=== PATIENT | female | born 1950 | race Caucasian/White ===

== ENCOUNTER 2018-04-06 10:00 | Inpatient (IN) | payer MEDICARE, OTHER ==
[~2018-04-06] VITALS: Ht 160 cm; Wt 87.1 kg
[~2018-04-06 10:00] MED LIST: ALPR0.25 PO; ALPR0.5T PO; ASPI-482 PO; ATOR10TA PO; ATOR20TA PO; BYSTOLIC2.5 MG PO; BYSTOLIC5 MG PO; CALC-112 PO; FISH1CAP PO; FURO20TA3 PO; HYDR-2678 PO; LACT1CAP19 PO; OMEP20TA63 PO; POTA10TA12 PO; VIT1TABL34 PO
--- NOTE | 2018-04-06 10:20 | EKG ---
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
--- NOTE | 2018-04-06 10:30 | PHYS DOC ---
Past Medical History Past Medical History: Anxiety, GERD, Hypertension Additional Past Medical Histor: MACULAR DEGENERATION, ARTHRITIS, Past Surgical History: Cancer Surgery, Hysterectomy, Tonsillectomy Additional Past Surgical Histo: MITRAL VALVE REPLACEMENT, CARCINOMA, R. MINISCUS RX, PARATHYROID Alcohol Use: None Drug Use: Benzodiazepine Adult General Chief Complaint Chief Complaint: CHEST PAIN HPI HPI 67-year-old female presenting to the emergency department today after being seen by Dr. Velazquez in clinic. Her monitor was initiated and the patient was called and brought into the emergency department because of multiple PVCs, bigeminy and tachycardia. The patient's symptoms are primarily shortness of breath. She denies any chest pain. She has a history of high blood pressure and mitral valve replacement. She denies fevers chills headaches. Her shortness of breath has been present for more than a week intermittently worse when she walks. Review of systems is negative for chest pain abdominal pain nausea vomiting diaphoresis. All other review of systems is negative unless otherwise noted in history of present illness. ED course: 67-year-old female presenting with palpitations and shortness of breath found to have bigeminy and tachycardia on Holter monitor at home. Here the patient has bigeminy as well. On arrival the patient's heart rate is approximately 100 bpm. She is afebrile with mild hypertension. On examination she is well-appearing with clear lungs bilaterally. Blood work obtained along with chest x-ray. 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 Chest x-ray unremarkable. Blood work shows a negative troponin. CBC unremarkable. The remainder the blood work is unremarkable. Dr. Velazquez asked me to administer flecainide to the patient to admit the patient for treatment of bigeminy. The patient was then admitted for further treatment and care. Review of Systems Review of Systems SEE ABOVE. Current Medications Current Medications Current Medications Medications (Trade) Dose Ordered Sig/Oc Start Time Stop Time Status Last Admin Dose Admin Flecainide Acetate (Tambocor) 75 mg 1X ONCE 04/06/18 11:00 04/06/18 11:01 DC 04/06/18 11:09 75 MG Morphine Sulfate (Morphine Sulfate) 2 mg PRN Q2HR PRN 04/06/18 11:00 04/07/18 10:59 Sodium Chloride 1,000 ml @ 80 mls/hr [id number] 04/06/18 10:52 04/07/18 10:51 Allergies Allergies Allergies Coded Allergies Type Severity Reaction Last Updated Verified ketorolac Allergy Severe Swelling 02/07/16 Yes cephalexin Allergy Intermediate 02/07/16 Yes ciprofloxacin Allergy Intermediate 02/11/16 Yes clindamycin Allergy Intermediate 02/07/16 Yes sulfamethoxazole Allergy Intermediate 02/07/16 Yes trimethoprim Allergy Intermediate 02/07/16 Yes nitrofurantoin Allergy Unknown Rash 02/07/16 Yes Physical Exam Physical Exam SEE ABOVE Constitutional: Well developed, well nourished, no acute distress, non-toxic appearance. HENT: Normocephalic, atraumatic, bilateral external ears normal, oropharynx moist, no oral exudates, nose normal. [] Eyes: PERRLA, EOMI, conjunctiva normal, no discharge. Neck: Normal range of motion, no tenderness, supple, no stridor. [] Cardiovascular: mild tachy heart rate with irregular rhythm, no murmur Lungs & Thorax: Bilateral breath sounds clear to auscultation [] Abdomen: Bowel sounds normal, soft, no tenderness, no masses, no pulsatile masses. Skin: Warm, dry, no erythema, no rash. [] Back: No tenderness, no CVA tenderness. Extremities: No tenderness, no cyanosis, no clubbing, ROM intact, no edema. Neurologic: Alert and oriented X 3, normal motor function, normal sensory function, no focal deficits noted. [] Psychologic: Affect normal, judgement normal, mood normal. [] Current Patient Data Vital Signs Vital Signs Date Time Temp Pulse Resp B/P (MAP) Pulse Ox O2 Delivery O2 Flow Rate FiO2 04/06/18 11:30 98 152/68 (96) 99 Room Air 04/06/18 10:07 98.3 98.3 Lab Values Laboratory Tests Test 04/06/18 10:15 White Blood Count 6.3 x10^3/uL (4.0-11.0) Red Blood Count 4.89 x10^6/uL (3.50-5.40) Hemoglobin 14.4 g/dL (12.0-15.5) Hematocrit 42.6 % (36.0-47.0) Mean Corpuscular Volume 87 fL (79-100) Mean Corpuscular Hemoglobin 30 pg (25-35) Mean Corpuscular Hemoglobin Concent 34 g/dL (31-37) Red Cell Distribution Width 13.8 % (11.5-14.5) Platelet Count 142 x10^3/uL (140-400) Neutrophils (%) (Auto) 66 % (31-73) Lymphocytes (%) (Auto) 22 % (24-48) L Monocytes (%) (Auto) 10 % (0-9) H Eosinophils (%) (Auto) 2 % (0-3) Basophils (%) (Auto) 0 % (0-3) Neutrophils # (Auto) 4.2 x10^3uL (1.8-7.7) Lymphocytes # (Auto) 1.4 x10^3/uL (1.0-4.8) Monocytes # (Auto) 0.6 x10^3/uL (0.0-1.1) Eosinophils # (Auto) 0.1 x10^3/uL (0.0-0.7) Basophils # (Auto) 0.0 x10^3/uL (0.0-0.2) Prothrombin Time 12.9 SEC (11.7-14.0) Prothrombin Time INR 1.0 (0.8-1.1) PTT 32 SEC (24-38) Sodium Level 143 mmol/L (136-145) Potassium Level 4.6 mmol/L (3.5-5.1) Chloride Level 104 mmol/L (98-107) Carbon Dioxide Level 30 mmol/L (21-32) Anion Gap 9 (6-14) Blood Urea Nitrogen 12 mg/dL (7-20) Creatinine 0.8 mg/dL (0.6-1.0) Estimated GFR (Cockcroft-Gault) 71.1 Glucose Level 109 mg/dL (70-99) H Calcium Level 10.8 mg/dL (8.5-10.1) H Magnesium Level 2.3 mg/dL (1.8-2.4) Total Bilirubin 0.8 mg/dL (0.2-1.0) Direct Bilirubin 0.2 mg/dL (0.0-0.2) Aspartate Amino Transferase (AST) 21 U/L (15-37) Alanine Aminotransferase (ALT) 29 U/L (14-59) Alkaline Phosphatase 98 U/L (46-116) Troponin I Quantitative < 0.017 ng/mL (0.000-0.055) LT-Whi-T-Type Natriuretic Peptide 549 pg/mL (0-124) H Total Protein 7.4 g/dL (6.4-8.2) Albumin 4.1 g/dL (3.4-5.0) Lipase 114 U/L (73-393) Laboratory Tests 04/06/18 10:15 Laboratory Tests 04/06/18 10:15 EKG EKG [] Radiology/Procedures Radiology/Procedures [] Course & Med Decision Making Course & Med Decision Making Pertinent Labs and Imaging studies reviewed. (See chart for details) [] Dragon Disclaimer Dragon Disclaimer This electronic medical record was generated, in whole or in part, using a voice recognition dictation system. Departure Departure Impression: Primary Impression: SOB (shortness of breath) Additional Impression: Bigeminy Disposition: 09 ADMITTED INPATIENT Admitting Physician: Dimas Velazquez Condition: STABLE Referrals: JANET YI MD (PCP) Problem Qualifiers VANCE GONSALES MD Apr 06, 2018 10:29
[2018-04-06 10:33] LABS: BASO % 0 % (0-3); EOS # 0.1 x10^3/uL (0.0-0.7); EOS % 2 % (0-3); HEMATOCRIT 42.6 % (36.0-47.0); HEMOGLOBIN 14.4 g/dL (12.0-15.5); LYMPH # 1.4 x10^3/uL (1.0-4.8); LYMPH % 22 % (24-48); MEAN CORPUSCULAR HEMOGLOBIN 30 pg (25-35); MEAN CORPUSCULAR HGB CONC 34 g/dL (31-37); MEAN CORPUSCULAR VOLUME 87 fL (79-100); MONO # 0.6 x10^3/uL (0.0-1.1); MONO % 10 % (0-9); NEUT # 4.2 x10^3uL (1.8-7.7); NEUT % 66 % (31-73); PLATELET COUNT 142 x10^3/uL (140-400); RED BLOOD COUNT 4.89 x10^6/uL (3.50-5.40); RED CELL DISTRIBUTION WIDTH 13.8 % (11.5-14.5); WHITE BLOOD COUNT 6.3 x10^3/uL (4.0-11.0)
[2018-04-06 10:45] LABS: PROTHROMBIN TIME PATIENT 12.9 SEC (11.7-14.0)
[2018-04-06 10:46] LABS: CALCIUM 10.8 mg/dL (8.5-10.1); CREATININE 0.8 mg/dL (0.6-1.0); GFR 71.1; POTASSIUM 4.6 mmol/L (3.5-5.1)
[2018-04-06 10:52] LABS: ALBUMIN 4.1 g/dL (3.4-5.0); DIRECT BILIRUBIN 0.2 mg/dL (0.0-0.2); TOTAL BILIRUBIN 0.8 mg/dL (0.2-1.0); TOTAL PROTEIN 7.4 g/dL (6.4-8.2)
[2018-04-06] MEDS ORDERED: IV NORMAL SALINE 1000ML BAG 1,000 ML IV SCH (10:52)
--- NOTE | 2018-04-06 10:53 | RAD ---
CHEST AP ONLY dated 04/06/2018 10:39 AM. Comparison: 11/08/2015 Clinical Indication: CHEST PAIN AND SHORTNESS OF BREATH. Findings: Single upright portable exam performed. Heart and mediastinal contours are stable. Patient is status post median sternotomy. Lungs are clear without focal consolidation. Vascular interstitium within normal limits. No pleural effusion or pneumothorax. Impression: No acute radiographic abnormality. Stable findings compared to 11/08/2015. Electronically signed by: Rosas Avelar MD (04/06/2018 10:49 AM) [id number]
[2018-04-06] MEDS ORDERED: MORPHINE SULFATE 2 MG/ML VIAL. IV PRN (11:00)
[2018-04-06] MEDS ORDERED: FLECAINIDE ACETATE 50 MG TABLET. PO ONE (11:00)
[2018-04-06 14:51] VITALS: BP 128/64
[2018-04-06] MEDS ORDERED: CALC-112 PO (15:16)
[2018-04-06] MEDS ORDERED: POTA20TA82 PO (15:16)
--- NOTE | 2018-04-06 15:33 | PDOC1 ---
History and Physical Date of Admission Date of Admission DATE: 04/06/18 TIME: 15:08 Identification/Chief Complaint Chief Complaint Irregular heart beat Source Source: Patient History of Present Illness History of Present Illness Patient is a pleasant 67 year old white female that presents with chief complaint of heart palpitations. She has also been experiencing HER, headaches, and fatigue. Symptoms began 5 months ago, occur intermittently and have progressively worsened. Patient denies chest pain during these episodes. Patient wore a holter monitor 2 days ago, which showed frequent PVCs. She was admitted to [facility] for monitoring while Flecainide therapy is initiated. Past Medical History Past Medical History macular degeneration Cardiovascular: HTN GI: GERD Psych: Anxiety Musculoskeletal: Osteoarthritis Past Surgical History Past Surgical History: Tonsillectomy, Hysterectomy, Other (mitral valve replacement, parathyroid surgery) Current Problem List Problem List Problems Medical Problems: (1) Bigeminy Status: Acute (2) SOB (shortness of breath) Status: Acute Current Medications Current Medications Current Medications Morphine Sulfate (Morphine Sulfate) 2 mg PRN Q2HR PRN IV PAIN; Start 04/06/18 at 11:00; Stop 04/07/18 at 10:59 Sodium Chloride 1,000 ml @ 80 mls/hr [id number] IV ; Start 04/06/18 at 10:52; Stop 04/07/18 at 10:51 Flecainide Acetate (Tambocor) 75 mg 1X ONCE PO Last administered on at 11:09; Start 04/06/18 at 11:00; Stop 04/06/18 at 11:01; Status DC Active Scripts Active Reported Lortab 5-325 mg Tablet (Hydrocodone/Acetaminophen) 1 Each Tablet 1 Tab PO PRN Q6HRS PRN Preservision Areds Tablet (Vit A/Vit C/Vit E/Zinc/Copper) 1 Each Tablet 1 Each PO DAILY Fish Oil 1,200 Mg Fish Oil (Fish Oil/Dha/Epa) 1 Each Capsule 1 Each PO DAILY Citracal + D Er Tablet (Calcium Carb & Cit/Vitamin D3) 1 Each Tablet.er 1 Each PO DAILY Aspir 81 (Aspirin) 81 Mg Tablet. 1 Tab PO DAILY Culturelle (Lactobacillus Rhamnosus Gg) 1 Each Cap.sprink 1 Each PO DAILY Potassium Chloride 10 Meq Tablet.er 20 Meq PO DAILY Prilosec Otc (Omeprazole Magnesium) 20 Mg Tablet.dr 40 Mg PO DAILY Bystolic (Nebivolol) 5 Mg Tablet 5 Mg PO DAILY Lipitor (Atorvastatin Calcium) 20 Mg Tablet 1 Tab PO DAILY Xanax (Alprazolam) 0.5 Mg Tablet 1 Tab PO TID Furosemide 20 Mg Tablet 1 Tab PO DAILY Allergies Allergies: Coded Allergies: ketorolac (Verified Allergy, Severe, Swelling, 02/07/16) cephalexin (Verified Allergy, Intermediate, 02/07/16) ciprofloxacin (Verified Allergy, Intermediate, 02/11/16) levaquin given pre-op - no allergic reaction reported clindamycin (Verified Allergy, Intermediate, 02/07/16) sulfamethoxazole (Verified Allergy, Intermediate, 02/07/16) trimethoprim (Verified Allergy, Intermediate, 02/07/16) nitrofurantoin (Verified Allergy, Unknown, Rash, 02/07/16) ROS General: YES: Fatigue HEENT: YES: [place] Respiratory: YES: SOB with excertion Cardiovascular: yes Palpitations Physical Exam General: Alert, Oriented X3, Cooperative, No acute distress Lungs: Clear to auscultation Heart: other (regular rate with irregular rhythm due to PVCs) Extremities: No clubbing, No cyanosis, No edema, Normal pulses Vitals Vitals Vital Signs Date Time Temp Pulse Resp B/P (MAP) Pulse Ox O2 Delivery O2 Flow Rate FiO2 04/06/18 14:51 97.9 56 18 128/64 (85) 95 97.9 04/06/18 12:30 Room Air Labs Labs Laboratory Tests Test 04/06/18 10:15 04/06/18 13:40 White Blood Count 6.3 x10^3/uL (4.0-11.0) Red Blood Count 4.89 x10^6/uL (3.50-5.40) Hemoglobin 14.4 g/dL (12.0-15.5) Hematocrit 42.6 % (36.0-47.0) Mean Corpuscular Volume 87 fL (79-100) Mean Corpuscular Hemoglobin 30 pg (25-35) Mean Corpuscular Hemoglobin Concent 34 g/dL (31-37) Red Cell Distribution Width 13.8 % (11.5-14.5) Platelet Count 142 x10^3/uL (140-400) Neutrophils (%) (Auto) 66 % (31-73) Lymphocytes (%) (Auto) 22 % (24-48) Monocytes (%) (Auto) 10 % (0-9) Eosinophils (%) (Auto) 2 % (0-3) Basophils (%) (Auto) 0 % (0-3) Neutrophils # (Auto) 4.2 x10^3uL (1.8-7.7) Lymphocytes # (Auto) 1.4 x10^3/uL (1.0-4.8) Monocytes # (Auto) 0.6 x10^3/uL (0.0-1.1) Eosinophils # (Auto) 0.1 x10^3/uL (0.0-0.7) Basophils # (Auto) 0.0 x10^3/uL (0.0-0.2) Prothrombin Time 12.9 SEC (11.7-14.0) Prothromb Time International Ratio 1.0 (0.8-1.1) Activated Partial Thromboplast Time 32 SEC (24-38) Sodium Level 143 mmol/L (136-145) Potassium Level 4.6 mmol/L (3.5-5.1) Chloride Level 104 mmol/L (98-107) Carbon Dioxide Level 30 mmol/L (21-32) Anion Gap 9 (6-14) Blood Urea Nitrogen 12 mg/dL (7-20) Creatinine 0.8 mg/dL (0.6-1.0) Estimated GFR (Cockcroft-Gault) 71.1 Glucose Level 109 mg/dL (70-99) Calcium Level 10.8 mg/dL (8.5-10.1) Magnesium Level 2.3 mg/dL (1.8-2.4) Total Bilirubin 0.8 mg/dL (0.2-1.0) Direct Bilirubin 0.2 mg/dL (0.0-0.2) Aspartate Amino Transf (AST/SGOT) 21 U/L (15-37) Alanine Aminotransferase (ALT/SGPT) 29 U/L (14-59) Alkaline Phosphatase 98 U/L (46-116) Troponin I Quantitative < 0.017 ng/mL (0.000-0.055) < 0.017 ng/mL (0.000-0.055) OI-Wnd-P-Type Natriuretic Peptide 549 pg/mL (0-124) Total Protein 7.4 g/dL (6.4-8.2) Albumin 4.1 g/dL (3.4-5.0) Lipase 114 U/L (73-393) Laboratory Tests Test 04/06/18 10:15 04/06/18 13:40 White Blood Count 6.3 x10^3/uL (4.0-11.0) Red Blood Count 4.89 x10^6/uL (3.50-5.40) Hemoglobin 14.4 g/dL (12.0-15.5) Hematocrit 42.6 % (36.0-47.0) Mean Corpuscular Volume 87 fL (79-100) Mean Corpuscular Hemoglobin 30 pg (25-35) Mean Corpuscular Hemoglobin Concent 34 g/dL (31-37) Red Cell Distribution Width 13.8 % (11.5-14.5) Platelet Count 142 x10^3/uL (140-400) Neutrophils (%) (Auto) 66 % (31-73) Lymphocytes (%) (Auto) 22 % (24-48) Monocytes (%) (Auto) 10 % (0-9) Eosinophils (%) (Auto) 2 % (0-3) Basophils (%) (Auto) 0 % (0-3) Neutrophils # (Auto) 4.2 x10^3uL (1.8-7.7) Lymphocytes # (Auto) 1.4 x10^3/uL (1.0-4.8) Monocytes # (Auto) 0.6 x10^3/uL (0.0-1.1) Eosinophils # (Auto) 0.1 x10^3/uL (0.0-0.7) Basophils # (Auto) 0.0 x10^3/uL (0.0-0.2) Prothrombin Time 12.9 SEC (11.7-14.0) Prothromb Time International Ratio 1.0 (0.8-1.1) Activated Partial Thromboplast Time 32 SEC (24-38) Sodium Level 143 mmol/L (136-145) Potassium Level 4.6 mmol/L (3.5-5.1) Chloride Level 104 mmol/L (98-107) Carbon Dioxide Level 30 mmol/L (21-32) Anion Gap 9 (6-14) Blood Urea Nitrogen 12 mg/dL (7-20) Creatinine 0.8 mg/dL (0.6-1.0) Estimated GFR (Cockcroft-Gault) 71.1 Glucose Level 109 mg/dL (70-99) Calcium Level 10.8 mg/dL (8.5-10.1) Magnesium Level 2.3 mg/dL (1.8-2.4) Total Bilirubin 0.8 mg/dL (0.2-1.0) Direct Bilirubin 0.2 mg/dL (0.0-0.2) Aspartate Amino Transf (AST/SGOT) 21 U/L (15-37) Alanine Aminotransferase (ALT/SGPT) 29 U/L (14-59) Alkaline Phosphatase 98 U/L (46-116) Troponin I Quantitative < 0.017 ng/mL (0.000-0.055) < 0.017 ng/mL (0.000-0.055) CO-Jrh-E-Type Natriuretic Peptide 549 pg/mL (0-124) Total Protein 7.4 g/dL (6.4-8.2) Albumin 4.1 g/dL (3.4-5.0) Lipase 114 U/L (73-393) VTE Prophylaxis Ordered VTE Prophylaxis Devices: No VTE Pharmacological Prophylaxi: Yes Assessment/Plan Assessment/Plan Patient has frequent symptomatic PVCs, causing SOB, MONTERO, and sensation of heart palpitations. Begin flecainide Monitor closely for 48-72 hours during initiation of flecainide therapy. ROMAN LAZAR MD Apr 06, 2018 15:33
[2018-04-06 19:18] VITALS: BP 129/57
[2018-04-06] MEDS: ACETAMINOPHEN 325 MG TABLET. PO PRN (20:04)
[2018-04-06] MEDS: ALPRAZolam 0.5 MG TABLET PO SCH (20:04)
[2018-04-06] MEDS: FLECAINIDE ACETATE 50 MG TABLET. PO SCH (20:05)
[2018-04-06] MEDS: ATORVASTATIN CALCIUM 20 MG TABLET PO SCH (20:05)
[2018-04-06 23:31] VITALS: BP 111/70
[2018-04-07 03:17] VITALS: BP 115/57
[2018-04-07 04:36] LABS: CREATININE 0.8 mg/dL (0.6-1.0); GFR 71.1; POTASSIUM 4.1 mmol/L (3.5-5.1)
[2018-04-07 04:42] LABS: BASO % 1 % (0-3); EOS # 0.1 x10^3/uL (0.0-0.7); EOS % 2 % (0-3); HEMATOCRIT 40.2 % (36.0-47.0); HEMOGLOBIN 13.6 g/dL (12.0-15.5); LYMPH % 31 % (24-48); MEAN CORPUSCULAR HEMOGLOBIN 30 pg (25-35); MEAN CORPUSCULAR HGB CONC 34 g/dL (31-37); MEAN CORPUSCULAR VOLUME 87 fL (79-100); MONO # 0.5 x10^3/uL (0.0-1.1); MONO % 8 % (0-9); NEUT # 3.9 x10^3uL (1.8-7.7); NEUT % 59 % (31-73); PLATELET COUNT 138 x10^3/uL (140-400); RED BLOOD COUNT 4.59 x10^6/uL (3.50-5.40); WHITE BLOOD COUNT 6.7 x10^3/uL (4.0-11.0)
[2018-04-07] MEDS: ALPRAZolam 0.5 MG TABLET PO SCH ×3 (06:17→20:54)
[2018-04-07 07:00] VITALS: BP 125/70
[2018-04-07] MEDS ORDERED: PANTOPRAZOLE 40 MG TABLET.DR. PO SCH (07:30)
[2018-04-07] MEDS: POTASSIUM CHLORIDE 20 MEQ TABLET.ER. PO SCH (08:25)
[2018-04-07] MEDS: ASPIRIN ENTERIC COATED 81 MG TABLET.DR. PO SCH (08:25)
[2018-04-07] MEDS: OMEGA-3 FATTY ACIDS/FISH OIL 1,000 MG CAPSULE. PO SCH (08:25)
[2018-04-07] MEDS: MULTIVITAMIN I-VITE TABLET. PO SCH (08:25)
[2018-04-07] MEDS: FUROSEMIDE 20 MG TABLET PO SCH (08:25)
[2018-04-07] MEDS: CALCIUM CARB/VIT D3 500/200 TABLET. PO SCH ×2 (08:26→17:30)
[2018-04-07] MEDS ORDERED: CALCIUM CARB PO SCH (09:00)
[2018-04-07] MEDS ORDERED: VITAMIN D3 PO SCH (09:00)
[2018-04-07] MEDS ORDERED: METOPROLOL TART IMMED RELEASE 25 MG TABLET. PO SCH (09:00)
[2018-04-07] MEDS ORDERED: CIT PO SCH (09:00)
[2018-04-07] MEDS: FLECAINIDE ACETATE 50 MG TABLET. PO SCH ×2 (09:33→20:55)
[2018-04-07] MEDS: OMEPRAZOLE 40 MG PO SCH (10:12)
[2018-04-07] MEDS: BYSTOLIC 5 MG PO SCH (10:13)
[2018-04-07 11:00] VITALS: BP 112/65
--- NOTE | 2018-04-07 14:17 | PDOC ---
PROGRESS NOTES Subjective Subjective Patient doing well, but continues to have dyspnea and heart palpitations with activity. Objective Objective Vital Signs Date Time Temp Pulse Resp B/P (MAP) Pulse Ox O2 Delivery O2 Flow Rate FiO2 04/07/18 11:00 97.7 50 20 112/65 (81) 97 Room Air 97.7 Intake and Output 04/07/18 07:00 Intake Total 500 ml Balance 500 ml Intake Oral 500 ml # Voids 2 Physical Exam Physical Exam No significant change in cardiac exam Assessment Assessment Frequent symptomatic PVCs, no V Tach but very symptomatic Problems Medical Problems: (1) Bigeminy Status: Acute (2) SOB (shortness of breath) Status: Acute Plan Plan of Care Increase flecainide dose to 150mg BID and continue to monitor closely Comment Review of Relevant I have reviewed the following items jamal (where applicable) has been applied. Labs Laboratory Tests Test 04/06/18 10:15 04/06/18 13:40 04/06/18 16:40 04/07/18 03:35 White Blood Count 6.3 x10^3/uL (4.0-11.0) 6.7 x10^3/uL (4.0-11.0) Red Blood Count 4.89 x10^6/uL (3.50-5.40) 4.59 x10^6/uL (3.50-5.40) Hemoglobin 14.4 g/dL (12.0-15.5) 13.6 g/dL (12.0-15.5) Hematocrit 42.6 % (36.0-47.0) 40.2 % (36.0-47.0) Mean Corpuscular Volume 87 fL (79-100) 87 fL (79-100) Mean Corpuscular Hemoglobin 30 pg (25-35) 30 pg (25-35) Mean Corpuscular Hemoglobin Concent 34 g/dL (31-37) 34 g/dL (31-37) Red Cell Distribution Width 13.8 % (11.5-14.5) 14.0 % (11.5-14.5) Platelet Count 142 x10^3/uL (140-400) 138 x10^3/uL (140-400) Neutrophils (%) (Auto) 66 % (31-73) 59 % (31-73) Lymphocytes (%) (Auto) 22 % (24-48) 31 % (24-48) Monocytes (%) (Auto) 10 % (0-9) 8 % (0-9) Eosinophils (%) (Auto) 2 % (0-3) 2 % (0-3) Basophils (%) (Auto) 0 % (0-3) 1 % (0-3) Neutrophils # (Auto) 4.2 x10^3uL (1.8-7.7) 3.9 x10^3uL (1.8-7.7) Lymphocytes # (Auto) 1.4 x10^3/uL (1.0-4.8) 2.0 x10^3/uL (1.0-4.8) Monocytes # (Auto) 0.6 x10^3/uL (0.0-1.1) 0.5 x10^3/uL (0.0-1.1) Eosinophils # (Auto) 0.1 x10^3/uL (0.0-0.7) 0.1 x10^3/uL (0.0-0.7) Basophils # (Auto) 0.0 x10^3/uL (0.0-0.2) 0.0 x10^3/uL (0.0-0.2) Prothrombin Time 12.9 SEC (11.7-14.0) Prothromb Time International Ratio 1.0 (0.8-1.1) Activated Partial Thromboplast Time 32 SEC (24-38) Sodium Level 143 mmol/L (136-145) 141 mmol/L (136-145) Potassium Level 4.6 mmol/L (3.5-5.1) 4.1 mmol/L (3.5-5.1) Chloride Level 104 mmol/L (98-107) 105 mmol/L (98-107) Carbon Dioxide Level 30 mmol/L (21-32) 29 mmol/L (21-32) Anion Gap 9 (6-14) 7 (6-14) Blood Urea Nitrogen 12 mg/dL (7-20) 14 mg/dL (7-20) Creatinine 0.8 mg/dL (0.6-1.0) 0.8 mg/dL (0.6-1.0) Estimated GFR (Cockcroft-Gault) 71.1 71.1 Glucose Level 109 mg/dL (70-99) 103 mg/dL (70-99) Calcium Level 10.8 mg/dL (8.5-10.1) 10.0 mg/dL (8.5-10.1) Magnesium Level 2.3 mg/dL (1.8-2.4) Total Bilirubin 0.8 mg/dL (0.2-1.0) Direct Bilirubin 0.2 mg/dL (0.0-0.2) Aspartate Amino Transf (AST/SGOT) 21 U/L (15-37) Alanine Aminotransferase (ALT/SGPT) 29 U/L (14-59) Alkaline Phosphatase 98 U/L (46-116) Troponin I Quantitative < 0.017 ng/mL (0.000-0.055) < 0.017 ng/mL (0.000-0.055) < 0.017 ng/mL (0.000-0.055) VN-Qil-D-Type Natriuretic Peptide 549 pg/mL (0-124) Total Protein 7.4 g/dL (6.4-8.2) Albumin 4.1 g/dL (3.4-5.0) Lipase 114 U/L (73-393) Laboratory Tests Test 04/06/18 16:40 04/07/18 03:35 Troponin I Quantitative < 0.017 ng/mL (0.000-0.055) White Blood Count 6.7 x10^3/uL (4.0-11.0) Red Blood Count 4.59 x10^6/uL (3.50-5.40) Hemoglobin 13.6 g/dL (12.0-15.5) Hematocrit 40.2 % (36.0-47.0) Mean Corpuscular Volume 87 fL (79-100) Mean Corpuscular Hemoglobin 30 pg (25-35) Mean Corpuscular Hemoglobin Concent 34 g/dL (31-37) Red Cell Distribution Width 14.0 % (11.5-14.5) Platelet Count 138 x10^3/uL (140-400) Neutrophils (%) (Auto) 59 % (31-73) Lymphocytes (%) (Auto) 31 % (24-48) Monocytes (%) (Auto) 8 % (0-9) Eosinophils (%) (Auto) 2 % (0-3) Basophils (%) (Auto) 1 % (0-3) Neutrophils # (Auto) 3.9 x10^3uL (1.8-7.7) Lymphocytes # (Auto) 2.0 x10^3/uL (1.0-4.8) Monocytes # (Auto) 0.5 x10^3/uL (0.0-1.1) Eosinophils # (Auto) 0.1 x10^3/uL (0.0-0.7) Basophils # (Auto) 0.0 x10^3/uL (0.0-0.2) Sodium Level 141 mmol/L (136-145) Potassium Level 4.1 mmol/L (3.5-5.1) Chloride Level 105 mmol/L (98-107) Carbon Dioxide Level 29 mmol/L (21-32) Anion Gap 7 (6-14) Blood Urea Nitrogen 14 mg/dL (7-20) Creatinine 0.8 mg/dL (0.6-1.0) Estimated GFR (Cockcroft-Gault) 71.1 Glucose Level 103 mg/dL (70-99) Calcium Level 10.0 mg/dL (8.5-10.1) Medications Current Medications Morphine Sulfate (Morphine Sulfate) 2 mg PRN Q2HR PRN IV PAIN; Start 04/06/18 at 11:00; Stop 04/07/18 at 10:59; Status DC Sodium Chloride 1,000 ml @ 80 mls/hr [id number] IV ; Start 04/06/18 at 10:52; Stop 04/06/18 at 17:43; Status DC Flecainide Acetate (Tambocor) 75 mg 1X ONCE PO Last administered on at 11:09; Start 04/06/18 at 11:00; Stop 04/06/18 at 11:01; Status DC Flecainide Acetate (Tambocor) 75 mg Q12HR PO Last administered on 04/07/18at 09 :33; Start 04/06/18 at 21:00 Alprazolam (Xanax) 0.5 mg TID PO Last administered on 04/07/18at 13:54; Start 04/06/18 at 21:00 Aspirin (Ecotrin) 81 mg DAILY08 PO Last administered on 04/07/18 08:25; Start 04/07/18 at 08:00 Atorvastatin Calcium (Lipitor) 20 mg HS PO Last administered on 04/06/18at 20: 05; Start 04/06/18 at 21:00 Furosemide (Lasix) 20 mg DAILY PO Last administered on 04/07/18 08:25; Start 04/07/18 at 09:00 Calcium/Vitamin D (Oscal D 500mg/ 200uts) 1 tab BIDWMEALS PO Last administered on 04/07/18 08:26; Start 04/07/18 at 08:00 Non-Formulary Medication (Calcium Carb & Cit/Vitamin D3 (Citracal + D Er Tablet) ) 1 each DAILY PO ; Start 04/07/18 at 09:00; Stop 04/07/18 at 09:00; Status DC Fish Oil (Fish Oil) 1,000 mg DAILY PO Last administered on 04/07/18 08:25; Start 04/07/18 at 09:00 Metoprolol Tartrate (Lopressor) 25 mg BID PO ; Start 04/07/18 at 09:00; Stop 04/07/18 at 09:00; Status DC Pantoprazole Sodium (Protonix) 40 mg DAILYAC PO ; Start 04/07/18 at 07:30; Stop 04/07/18 at 07:30; Status DC Potassium Chloride (Klor-Con) 20 meq [id number] PO Last administered on 08:25; Start 04/07/18 at 08:00 Multivitamins/ Minerals (I-Smita) 1 tab DAILY PO Last administered on at 08:25; Start 04/07/18 at 09:00 Acetaminophen (Tylenol) 650 mg PRN Q6HRS PRN PO PAIN Last administered on 04/06at 20:04; Start 04/06/18 at 19:15 Non-Formulary Medication 1 ea DAILY PO Last administered on 04/07/18at 10:13; Start 04/07/18 at 09:00 Non-Formulary Medication 1 ea DAILYAC PO Last administered on 04/07/18at 10:12 ; Start 04/07/18 at 07:30 Active Scripts Active Reported Citracal + D Er Tablet (Calcium Carb & Cit/Vitamin D3) 1 Each Tablet.er 1 Each PO BID Potassium Chloride 20 Meq Tablet.er 20 Meq PO DAILY Preservision Areds Tablet (Vit A/Vit C/Vit E/Zinc/Copper) 1 Each Tablet 1 Each PO BID Fish Oil 1,200 Mg Fish Oil (Fish Oil/Dha/Epa) 1 Each Capsule 1 Each PO DAILY Citracal + D Er Tablet (Calcium Carb & Cit/Vitamin D3) 1 Each Tablet.er 1 Each PO DAILY Aspir 81 (Aspirin) 81 Mg Tablet.dr 1 Tab PO DAILY Prilosec Otc (Omeprazole Magnesium) 20 Mg Tablet.dr 40 Mg PO DAILY Bystolic (Nebivolol) 5 Mg Tablet 5 Mg PO DAILY Lipitor (Atorvastatin Calcium) 20 Mg Tablet 1 Tab PO HS Xanax (Alprazolam) 0.5 Mg Tablet 1 Tab PO TID Furosemide 20 Mg Tablet 1 Tab PO DAILY Vitals/I & O Vital Sign - Last 24 Hours 04/06/18 04/06/18 04/06/18 04/06/18 14:51 19:18 20:00 20:05 Temp 97.9 98.3 97.9 98.3 Pulse 56 57 74 Resp 18 16 B/P (MAP) 128/64 (85) 129/57 (81) 129/57 Pulse Ox 95 95 O2 Delivery Room Air Room Air 04/06/18 04/07/18 04/07/18 04/07/18 23:31 03:17 07:00 07:53 Temp 97.7 98.1 97.8 97.7 98.1 97.8 Pulse 50 50 52 Resp 16 16 18 B/P (MAP) 111/70 (84) 115/57 (76) 125/70 (88) Pulse Ox 97 93 97 O2 Delivery Room Air Room Air Room Air Room Air 04/07/18 04/07/18 09:33 11:00 Temp 97.7 97.7 Pulse 52 50 Resp 20 B/P (MAP) 125/70 112/65 (81) Pulse Ox 97 O2 Delivery Room Air Intake and Output 04/06/18 04/06/18 04/07/18 15:00 23:00 07:00 Intake Total 100 ml 400 ml Balance 100 ml 400 ml ROMAN LAZAR MD Apr 07, 2018 14:17
[2018-04-07 15:00] VITALS: BP 99/63
[2018-04-07 19:23] VITALS: BP 114/52
[2018-04-07] MEDS: ATORVASTATIN CALCIUM 20 MG TABLET PO SCH (20:54)
[2018-04-07 22:55] VITALS: BP 119/62
[2018-04-08 03:00] VITALS: BP 133/56
[2018-04-08] MEDS: OMEPRAZOLE 40 MG PO SCH (06:28)
[2018-04-08 07:45] VITALS: BP 134/73
[2018-04-08] MEDS: ALPRAZolam 0.5 MG TABLET PO SCH ×3 (08:25→20:36)
[2018-04-08] MEDS: ASPIRIN ENTERIC COATED 81 MG TABLET.DR. PO SCH (08:25)
[2018-04-08] MEDS: CALCIUM CARB/VIT D3 500/200 TABLET. PO SCH ×2 (08:25→17:36)
[2018-04-08] MEDS: MULTIVITAMIN I-VITE TABLET. PO SCH (08:25)
[2018-04-08] MEDS: OMEGA-3 FATTY ACIDS/FISH OIL 1,000 MG CAPSULE. PO SCH (08:25)
[2018-04-08] MEDS: POTASSIUM CHLORIDE 20 MEQ TABLET.ER. PO SCH (08:26)
[2018-04-08] MEDS: FUROSEMIDE 20 MG TABLET PO SCH (08:26)
[2018-04-08] MEDS: BYSTOLIC 5 MG PO SCH (08:27)
[2018-04-08] MEDS: FLECAINIDE ACETATE 50 MG TABLET. PO SCH ×2 (08:27→20:37)
[2018-04-08 11:04] VITALS: BP 133/73
--- NOTE | 2018-04-08 13:55 | PDOC ---
PROGRESS NOTES Subjective Subjective Patient doing well today, reports fewer episodes of heart palpitations. Objective Objective Vital Signs Date Time Temp Pulse Resp B/P (MAP) Pulse Ox O2 Delivery O2 Flow Rate FiO2 04/08/18 11:04 97.6 56 16 133/73 (93) 97 Room Air 97.6 Intake and Output 04/08/18 07:00 Intake Total 1900 ml Balance 1900 ml Intake Oral 1900 ml # Voids 6 Physical Exam Physical Exam Heart rhythm more regular with less frequent PVCs noted Assessment Assessment Problems Medical Problems: (1) Bigeminy Status: Acute (2) SOB (shortness of breath) Status: Acute Plan Plan of Care Continue flecainide 150mg BID Monitor overnight with likely discharge tomorrow Comment Review of Relevant I have reviewed the following items jamal (where applicable) has been applied. Labs Laboratory Tests Test 04/06/18 16:40 04/07/18 03:35 Troponin I Quantitative < 0.017 ng/mL (0.000-0.055) White Blood Count 6.7 x10^3/uL (4.0-11.0) Red Blood Count 4.59 x10^6/uL (3.50-5.40) Hemoglobin 13.6 g/dL (12.0-15.5) Hematocrit 40.2 % (36.0-47.0) Mean Corpuscular Volume 87 fL (79-100) Mean Corpuscular Hemoglobin 30 pg (25-35) Mean Corpuscular Hemoglobin Concent 34 g/dL (31-37) Red Cell Distribution Width 14.0 % (11.5-14.5) Platelet Count 138 x10^3/uL (140-400) Neutrophils (%) (Auto) 59 % (31-73) Lymphocytes (%) (Auto) 31 % (24-48) Monocytes (%) (Auto) 8 % (0-9) Eosinophils (%) (Auto) 2 % (0-3) Basophils (%) (Auto) 1 % (0-3) Neutrophils # (Auto) 3.9 x10^3uL (1.8-7.7) Lymphocytes # (Auto) 2.0 x10^3/uL (1.0-4.8) Monocytes # (Auto) 0.5 x10^3/uL (0.0-1.1) Eosinophils # (Auto) 0.1 x10^3/uL (0.0-0.7) Basophils # (Auto) 0.0 x10^3/uL (0.0-0.2) Sodium Level 141 mmol/L (136-145) Potassium Level 4.1 mmol/L (3.5-5.1) Chloride Level 105 mmol/L (98-107) Carbon Dioxide Level 29 mmol/L (21-32) Anion Gap 7 (6-14) Blood Urea Nitrogen 14 mg/dL (7-20) Creatinine 0.8 mg/dL (0.6-1.0) Estimated GFR (Cockcroft-Gault) 71.1 Glucose Level 103 mg/dL (70-99) Calcium Level 10.0 mg/dL (8.5-10.1) Medications Current Medications Morphine Sulfate (Morphine Sulfate) 2 mg PRN Q2HR PRN IV PAIN; Start 04/06/18 at 11:00; Stop 04/07/18 at 10:59; Status DC Sodium Chloride 1,000 ml @ 80 mls/hr [id number] IV ; Start 04/06/18 at 10:52; Stop 04/06/18 at 17:43; Status DC Flecainide Acetate (Tambocor) 75 mg 1X ONCE PO Last administered on at 11:09; Start 04/06/18 at 11:00; Stop 04/06/18 at 11:01; Status DC Flecainide Acetate (Tambocor) 75 mg Q12HR PO Last administered on 04/07/18at 09 :33; Start 04/06/18 at 21:00; Stop 04/07/18 at 15:25; Status DC Alprazolam (Xanax) 0.5 mg TID PO Last administered on 04/08/18at 08:25; Start 04/06/18 at 21:00 Aspirin (Ecotrin) 81 mg DAILY08 PO Last administered on 04/08/18at 08:25; Start 04/07/18 at 08:00 Atorvastatin Calcium (Lipitor) 20 mg HS PO Last administered on 04/07/18at 20: 54; Start 04/06/18 at 21:00 Furosemide (Lasix) 20 mg DAILY PO Last administered on 04/08/18at 08:26; Start 04/07/18 at 09:00 Calcium/Vitamin D (Oscal D 500mg/ 200uts) 1 tab BIDWMEALS PO Last administered on 04/08/18at 08:25; Start 04/07/18 at 08:00 Non-Formulary Medication (Calcium Carb & Cit/Vitamin D3 (Citracal + D Er Tablet) ) 1 each DAILY PO ; Start 04/07/18 at 09:00; Stop 04/07/18 at 09:00; Status DC Fish Oil (Fish Oil) 1,000 mg DAILY PO Last administered on 04/08/18at 08:25; Start 04/07/18 at 09:00 Metoprolol Tartrate (Lopressor) 25 mg BID PO ; Start 04/07/18 at 09:00; Stop 04/07/18 at 09:00; Status DC Pantoprazole Sodium (Protonix) 40 mg DAILYAC PO ; Start 04/07/18 at 07:30; Stop 04/07/18 at 07:30; Status DC Potassium Chloride (Klor-Con) 20 meq DAILYWBKFT PO Last administered on at 08:26; Start 04/07/18 at 08:00 Multivitamins/ Minerals (I-Smita) 1 tab DAILY PO Last administered on at 08:25; Start 04/07/18 at 09:00 Acetaminophen (Tylenol) 650 mg PRN Q6HRS PRN PO PAIN Last administered on 04/06at 20:04; Start 04/06/18 at 19:15 Non-Formulary Medication 1 ea DAILY PO Last administered on 04/08/18at 08:27; Start 04/07/18 at 09:00 Non-Formulary Medication 1 ea DAILYAC PO Last administered on 04/08/18at 06:28 ; Start 04/07/18 at 07:30 Flecainide Acetate (Tambocor) 150 mg Q12HR PO Last administered on 04/08/18at 08:27; Start 04/07/18 at 21:00 Active Scripts Active Reported Citracal + D Er Tablet (Calcium Carb & Cit/Vitamin D3) 1 Each Tablet.er 1 Each PO BID Potassium Chloride 20 Meq Tablet.er 20 Meq PO DAILY Preservision Areds Tablet (Vit A/Vit C/Vit E/Zinc/Copper) 1 Each Tablet 1 Each PO BID Fish Oil 1,200 Mg Fish Oil (Fish Oil/Dha/Epa) 1 Each Capsule 1 Each PO DAILY Citracal + D Er Tablet (Calcium Carb & Cit/Vitamin D3) 1 Each Tablet.er 1 Each PO DAILY Aspir 81 (Aspirin) 81 Mg Tablet. 1 Tab PO DAILY Prilosec Otc (Omeprazole Magnesium) 20 Mg Tablet.dr 40 Mg PO DAILY Bystolic (Nebivolol) 5 Mg Tablet 5 Mg PO DAILY Lipitor (Atorvastatin Calcium) 20 Mg Tablet 1 Tab PO HS Xanax (Alprazolam) 0.5 Mg Tablet 1 Tab PO TID Furosemide 20 Mg Tablet 1 Tab PO DAILY Vitals/I & O Vital Sign - Last 24 Hours 04/07/18 04/07/18 04/07/18 04/07/18 15:00 19:23 20:54 20:55 Temp 98.2 98.4 98.2 98.4 Pulse 87 77 77 Resp 20 20 B/P (MAP) 99/63 (75) 114/52 (72) 114/52 Pulse Ox 98 97 O2 Delivery Room Air Room Air Room Air 04/07/18 04/08/18 04/08/18 04/08/18 22:55 03:00 07:45 08:00 Temp 98.4 97.9 97.9 98.4 97.9 97.9 Pulse 80 65 56 Resp 16 16 16 B/P (MAP) 119/62 (81) 133/56 (81) 134/73 (93) Pulse Ox 97 96 96 O2 Delivery Room Air Room Air Room Air Room Air 04/08/18 04/08/18 08:27 11:04 Temp 97.6 97.6 Pulse 56 56 Resp 16 B/P (MAP) 134/73 133/73 (93) Pulse Ox 97 O2 Delivery Room Air Intake and Output 04/07/18 04/07/18 04/08/18 15:00 23:00 07:00 Intake Total 200 ml 200 ml 1500 ml Balance 200 ml 200 ml 1500 ml ROMAN LAZAR MD Apr 08, 2018 13:55
[2018-04-08 15:07] VITALS: BP 102/51
[2018-04-08 19:00] VITALS: BP 142/55
[2018-04-08] MEDS: ATORVASTATIN CALCIUM 20 MG TABLET PO SCH (20:36)
[2018-04-08 23:24] VITALS: BP 140/65
[2018-04-09 03:05] VITALS: BP 133/62
[2018-04-09] MEDS: OMEPRAZOLE 40 MG PO SCH (06:14)
[2018-04-09 07:41] VITALS: BP 119/63
[2018-04-09] MEDS: OMEGA-3 FATTY ACIDS/FISH OIL 1,000 MG CAPSULE. PO SCH (08:00)
[2018-04-09] MEDS: CALCIUM CARB/VIT D3 500/200 TABLET. PO SCH ×2 (08:00→17:23)
[2018-04-09] MEDS: POTASSIUM CHLORIDE 20 MEQ TABLET.ER. PO SCH (08:00)
[2018-04-09] MEDS: MULTIVITAMIN I-VITE TABLET. PO SCH (08:01)
[2018-04-09] MEDS: ASPIRIN ENTERIC COATED 81 MG TABLET.DR. PO SCH (08:01)
[2018-04-09] MEDS: FUROSEMIDE 20 MG TABLET PO SCH (08:01)
[2018-04-09] MEDS: FLECAINIDE ACETATE 50 MG TABLET. PO SCH ×2 (08:01→20:09)
[2018-04-09] MEDS: BYSTOLIC 5 MG PO SCH (08:02)
[2018-04-09] MEDS: ALPRAZolam 0.5 MG TABLET PO SCH ×3 (08:02→20:09)
[2018-04-09 10:10] VITALS: BP 109/61
[2018-04-09] MEDS: ACETAMINOPHEN 325 MG TABLET. PO PRN (10:37)
--- NOTE | 2018-04-09 13:39 | PDOC ---
PROGRESS NOTES Subjective Subjective Patient bradycardic during the night. Her rate slowed down into the 30s. This morning she is having more PVCs and she is symptomatic with them. No loss of consciousness Objective Objective Vital Signs Date Time Temp Pulse Resp B/P (MAP) Pulse Ox O2 Delivery O2 Flow Rate FiO2 04/09/18 10:10 97.5 74 18 109/61 (77) 98 Room Air 97.5 Intake and Output 04/09/18 07:00 Intake Total 2000 ml Balance 2000 ml Intake Oral 2000 ml # Voids 5 Physical Exam Physical Exam No significant changes in cardiac exam Assessment Assessment The patient's rhythm and symptoms are not quite controlled and I am concerned with the bradycardia that she had during the night. I would like to monitor her for at least 24 hours more and may have to either adjust the medication or change to something else. If the heart rate gets any slower we may have to discuss a possible pacemaker. Comment Review of Relevant I have reviewed the following items jamal (where applicable) has been applied. Medications Current Medications Morphine Sulfate (Morphine Sulfate) 2 mg PRN Q2HR PRN IV PAIN; Start 04/06/18 at 11:00; Stop 04/07/18 at 10:59; Status DC Sodium Chloride 1,000 ml @ 80 mls/hr [id number] IV ; Start 04/06/18 at 10:52; Stop 04/06/18 at 17:43; Status DC Flecainide Acetate (Tambocor) 75 mg 1X ONCE PO Last administered on at 11:09; Start 04/06/18 at 11:00; Stop 04/06/18 at 11:01; Status DC Flecainide Acetate (Tambocor) 75 mg Q12HR PO Last administered on 04/07/18at 09 :33; Start 04/06/18 at 21:00; Stop 04/07/18 at 15:25; Status DC Alprazolam (Xanax) 0.5 mg TID PO Last administered on 04/09/18at 08:02; Start 04/06/18 at 21:00 Aspirin (Ecotrin) 81 mg DAILY08 PO Last administered on 04/09/18at 08:01; Start 04/07/18 at 08:00 Atorvastatin Calcium (Lipitor) 20 mg HS PO Last administered on 04/08/18at 20: 36; Start 04/06/18 at 21:00 Furosemide (Lasix) 20 mg DAILY PO Last administered on 04/09/18 08:01; Start 04/07/18 at 09:00 Calcium/Vitamin D (Oscal D 500mg/ 200uts) 1 tab BIDWMEALS PO Last administered on 04/09/18at 08:00; Start 04/07/18 at 08:00 Non-Formulary Medication (Calcium Carb & Cit/Vitamin D3 (Citracal + D Er Tablet) ) 1 each DAILY PO ; Start 04/07/18 at 09:00; Stop 04/07/18 at 09:00; Status DC Fish Oil (Fish Oil) 1,000 mg DAILY PO Last administered on 04/09/18at 08:00; Start 04/07/18 at 09:00 Metoprolol Tartrate (Lopressor) 25 mg BID PO ; Start 04/07/18 at 09:00; Stop 04/07/18 at 09:00; Status DC Pantoprazole Sodium (Protonix) 40 mg DAILYAC PO ; Start 04/07/18 at 07:30; Stop 04/07/18 at 07:30; Status DC Potassium Chloride (Klor-Con) 20 meq DAILYWBKFT PO Last administered on at 08:00; Start 04/07/18 at 08:00 Multivitamins/ Minerals (I-Smita) 1 tab DAILY PO Last administered on at 08:01; Start 04/07/18 at 09:00 Acetaminophen (Tylenol) 650 mg PRN Q6HRS PRN PO PAIN Last administered on 04/09at 10:37; Start 04/06/18 at 19:15 Non-Formulary Medication 1 ea DAILY PO Last administered on 04/09/18at 08:02; Start 04/07/18 at 09:00 Non-Formulary Medication 1 ea DAILYAC PO Last administered on 04/09/18at 06:14 ; Start 04/07/18 at 07:30 Flecainide Acetate (Tambocor) 150 mg Q12HR PO Last administered on 04/09/18at 08:01; Start 04/07/18 at 21:00 Active Scripts Active Reported Citracal + D Er Tablet (Calcium Carb & Cit/Vitamin D3) 1 Each Tablet.er 1 Each PO BID Potassium Chloride 20 Meq Tablet.er 20 Meq PO DAILY Preservision Areds Tablet (Vit A/Vit C/Vit E/Zinc/Copper) 1 Each Tablet 1 Each PO BID Fish Oil 1,200 Mg Fish Oil (Fish Oil/Dha/Epa) 1 Each Capsule 1 Each PO DAILY Citracal + D Er Tablet (Calcium Carb & Cit/Vitamin D3) 1 Each Tablet.er 1 Each PO DAILY Aspir 81 (Aspirin) 81 Mg Tablet. 1 Tab PO DAILY Prilosec Otc (Omeprazole Magnesium) 20 Mg Tablet.dr 40 Mg PO DAILY Bystolic (Nebivolol) 5 Mg Tablet 5 Mg PO DAILY Lipitor (Atorvastatin Calcium) 20 Mg Tablet 1 Tab PO HS Xanax (Alprazolam) 0.5 Mg Tablet 1 Tab PO TID Furosemide 20 Mg Tablet 1 Tab PO DAILY Vitals/I & O Vital Sign - Last 24 Hours 04/08/18 04/08/18 04/08/18 04/08/18 15:07 19:00 19:10 20:37 Temp 97.9 98.0 97.9 98.0 Pulse 89 48 48 Resp 16 18 B/P (MAP) 102/51 (68) 142/55 (84) 142/55 Pulse Ox 96 94 O2 Delivery Room Air Room Air Room Air 04/08/18 04/09/18 04/09/18 04/09/18 23:24 03:05 07:40 07:41 Temp 97.8 97.7 98.0 97.8 97.7 98.0 Pulse 50 54 83 Resp 17 16 16 B/P (MAP) 140/65 (90) 133/62 (85) 119/63 (81) Pulse Ox 96 97 96 O2 Delivery Room Air Room Air Room Air Room Air 04/09/18 04/09/18 08:01 10:10 Temp 97.5 97.5 Pulse 83 74 Resp 18 B/P (MAP) 119/63 109/61 (77) Pulse Ox 98 O2 Delivery Room Air Intake and Output 04/08/18 04/08/18 04/09/18 15:00 23:00 07:00 Intake Total 200 ml 1400 ml 400 ml Balance 200 ml 1400 ml 400 ml ROMAN LAZAR MD Apr 09, 2018 13:39
[2018-04-09 14:37] VITALS: BP 140/54
[2018-04-09 19:05] VITALS: BP 141/70
[2018-04-09] MEDS: ATORVASTATIN CALCIUM 20 MG TABLET PO SCH (20:09)
[2018-04-09 22:37] VITALS: BP 135/50
[2018-04-10 03:58] VITALS: BP 131/57
[2018-04-10] MEDS: OMEPRAZOLE 40 MG PO SCH (06:06)
[2018-04-10 07:30] VITALS: BP 123/61
[2018-04-10] MEDS: MULTIVITAMIN I-VITE TABLET. PO SCH (07:59)
[2018-04-10] MEDS: FUROSEMIDE 20 MG TABLET PO SCH (07:59)
[2018-04-10] MEDS: ALPRAZolam 0.5 MG TABLET PO SCH ×2 (08:00→14:17)
[2018-04-10] MEDS: OMEGA-3 FATTY ACIDS/FISH OIL 1,000 MG CAPSULE. PO SCH (08:00)
[2018-04-10] MEDS: ASPIRIN ENTERIC COATED 81 MG TABLET.DR. PO SCH (08:00)
[2018-04-10] MEDS: FLECAINIDE ACETATE 50 MG TABLET. PO SCH (08:00)
[2018-04-10] MEDS: POTASSIUM CHLORIDE 20 MEQ TABLET.ER. PO SCH (08:00)
[2018-04-10] MEDS: CALCIUM CARB/VIT D3 500/200 TABLET. PO SCH (08:00)
[2018-04-10] MEDS: BYSTOLIC 5 MG PO SCH (08:00)
[2018-04-10 11:14] VITALS: BP 108/60
[2018-04-10 14:36] VITALS: BP 140/67
--- NOTE | 2018-04-10 16:01 | PDOC3 ---
*Discharge Summary* Date of Admission: Apr 06, 2018 Date of Discharge: Apr 10, 2018 Admitting Diagnosis Dysrhythmias. Frequent PVCs. Patient the snake and symptomatic with PVCs, nonsustained V. tach Final Diagnosis Bradycardia PVCs Nonsustained V. tach Symptomatic PVCs Brief Hospital Course The patient is a 67-year-old lady with a known history of coronary artery disease and CABG that has been having issues with frequent PVCs. This has been getting worse and she started having episodes of frequent bigeminy and couplets with associated dyspnea and lightheadedness and headaches. Patient was seen and evaluated as an outpatient and she was quite symptomatic and it was decided to proceed and bring her in to be able to start her on antiarrhythmics. This patient has had a lot of problems with different medications and side effects and I did not feel that he was safe to start her on antiarrhythmics for ventricular dysrhythmias at home without routine monitoring. After discussing a variety of medications he was decided to start the patient on flecainide such she was admitted and initiated on flecainide 75 mg by mouth twice a day. Initially the patient every time she tried to have any activity whether he was just trying to sit up she would have runs of PVCs and she would become very short of breath and lightheaded. Therefore I decided to increase the flecainide 250 mg by mouth twice a day and with this slowly the frequency of the PVCs decreased but she was also having episodes of bradycardia with a rate down to 39. Yesterday her rhythm was doing a little better but she was still symptomatic and today she is feeling better. At this point I would like to discharge her home to follow her as an outpatient with a Holter monitor and see how her rhythm behaves but I'm going to decrease the flecainide to 100 mg by mouth twice a day and check the patient with a Holter in one week as an outpatient. We have discussed the situation, options, follow up, medications, diet, activity and she agrees with the plan. She is to continue with her other home medications including her by systolic and to go home on the flecainide 100 mg by mouth twice a day Home Meds Reported Medications Calcium Carb & Cit/Vitamin D3 (CITRACAL + D ER TABLET) 1 Each Tablet.er, 1 EACH PO BID, TAB.SR 04/06/18 Potassium Chloride (POTASSIUM CHLORIDE) 20 Meq Tablet.er, 20 MEQ PO DAILY, TAB.SR 04/06/18 Vit A/Vit C/Vit E/Zinc/Copper (PRESERVISION AREDS TABLET) 1 Each Tablet, 1 EACH PO BID 02/07/16 Fish Oil/Dha/Epa (FISH OIL 1,200 MG FISH OIL) 1 Each Capsule, 1 EACH PO DAILY 02/07/16 Calcium Carb & Cit/Vitamin D3 (CITRACAL + D ER TABLET) 1 Each Tablet.er, 1 EACH PO DAILY 02/07/16 Aspirin (ASPIR 81) 81 Mg Tablet.dr, 1 TAB PO DAILY, #30 TAB 5 Refills 02/07/16 Omeprazole Magnesium (PRILOSEC OTC) 20 Mg Tablet.dr, 40 MG PO DAILY, TAB 02/07/16 Nebivolol Hcl (BYSTOLIC) 5 Mg Tablet, 5 MG PO DAILY, TAB 02/07/16 Atorvastatin Calcium (LIPITOR) 20 Mg Tablet, 1 TAB PO HS, #90 TAB 1 Refill 02/07/16 Alprazolam (XANAX) 0.5 Mg Tablet, 1 TAB PO TID, #90 TAB 02/07/16 Furosemide (FUROSEMIDE) 20 Mg Tablet, 1 TAB PO DAILY, #90 TAB 1 Refill 11/08/15 Scheduled Alprazolam (Xanax), 1 TAB PO TID, (Reported) Aspirin (Aspir 81), 1 TAB PO DAILY, (Reported) Atorvastatin Calcium (Lipitor), 1 TAB PO HS, (Reported) Calcium Carb & Cit/Vitamin D3 (Citracal + D Er Tablet), 1 EACH PO DAILY, ( Reported) Calcium Carb & Cit/Vitamin D3 (Citracal + D Er Tablet), 1 EACH PO BID, (Reported ) Fish Oil/Dha/Epa (Fish Oil 1,200 Mg Fish Oil), 1 EACH PO DAILY, (Reported) Furosemide (Furosemide), 1 TAB PO DAILY, (Reported) Nebivolol Hcl (Bystolic), 5 MG PO DAILY, (Reported) Omeprazole Magnesium (Prilosec Otc), 40 MG PO DAILY, (Reported) Potassium Chloride (Potassium Chloride), 20 MEQ PO DAILY, (Reported) Vit A/Vit C/Vit E/Zinc/Copper (Preservision Areds Tablet), 1 EACH PO BID, ( Reported) Time Spent Total time spent with patient [] minutes for coordination of care, counseling, and education. ROMAN LAZAR MD Apr 10, 2018 16:01
[2018-04-10] MEDS ORDERED: FLEC100T PO (16:23)
== END 2018-04-10 16:56 | disposition home or self-care (01) | DRG 309 ==
LOC: ER 10:00 → ED HOLD 11:56 → 2 NORTH 13:12
PROVIDERS: ADMIT Internal Medicine Cardiovascular Disease; ATTEND Internal Medicine Cardiovascular Disease
DX: I49.3 Ventricular premature depolarization (principal); I47.2 Ventricular tachycardia; R00.1 Bradycardia, unspecified; F41.9 Anxiety disorder, unspecified; R00.8 Other abnormalities of heart beat; M19.90 Unspecified osteoarthritis, unspecified site; I10 Essential (primary) hypertension; I25.10 Atherosclerotic heart disease of native coronary artery without angina pectoris; K21.9 Gastro-esophageal reflux disease without esophagitis; Z79.82 Long term (current) use of aspirin; Z90.710 Acquired absence of both cervix and uterus; Z95.1 Presence of aortocoronary bypass graft; Z95.2 Presence of prosthetic heart valve; Z88.6 Allergy status to analgesic agent; Z88.1 Allergy status to other antibiotic agents; Z88.8 Allergy status to other drugs, medicaments and biological substances; Z79.899 Other long term (current) drug therapy
CPT/HCPCS: 36415; 71045; 80048; 80076; 83690; 83735; 83880; 84484; 85025; 85610; 85730; 93005; 99285-25

== ENCOUNTER → 2018-06-30 | Outpatient (CLI) | payer MEDICARE, OTHER ==
[~2018-06-30] MED LIST changes: +FLEC100T PO; +POTA20TA82 PO
--- NOTE | 2018-06-30 12:55 | RAD ---
EXAM: Left lower extremity venous Doppler sonogram. HISTORY: Pain and swelling. TECHNIQUE: Rashid scale and color Doppler sonographic evaluation of the left lower extremity veins with spectral waveform analysis was performed. FINDINGS: There is normal color flow, normal compressibility and there are normal spectral waveforms in the common femoral, superficial femoral, popliteal, posterior tibial, peroneal and greater saphenous veins. IMPRESSION: No Doppler evidence of lower extremity deep venous thrombosis. Electronically signed by: Krissy Cortez MD (06/30/2018 12:51 PM) [place] [id number]
== END | disposition home or self-care (01) ==
LOC: US 12:06
PROVIDERS: ATTEND Nurse Practitioner Family
DX: M79.605 Pain in left leg (principal)
CPT/HCPCS: 93971

== ENCOUNTER → 2021-06-03 | Outpatient (CLI) | payer MEDICARE, OTHER ==
[~2021-06-03] MED LIST changes: -POTA10TA12 PO; +POTA20TA4 PO; -POTA20TA82 PO; +POTASSIUM CHLO10 ME1 PO
--- NOTE | 2021-06-03 12:45 | KCIC ---
EXAMINATION: CT Chest Without IV contrast. INDICATION:70 years, Female, chronic cough, dyspnea on exertion. COMPARISON: PET/CT dated 04/25/2010 TECHNIQUE: Spiral CT was obtained from the jugular notch through the posterior costophrenic recess. S agittal and coronal reformats were obtained. Exposure: One or more of the following individualized dose reduction techniques were utilized for thi s examination: 1. Automated exposure control 2. Adjustment of the mA and/or kV according to patient size 3. Use of iterative reconstruction technique. FINDINGS: LUNGS/PLEURA: Central airways are patent. Subsegmental atelectasis and/or scarring in the right middl e lobe and lingula. No bronchiectasis, honeycombing or pulmonary fibrosis. No air trapping. Right api maik pleural thickening. No focal consolidation, pleural effusion or pneumothorax. There is a 3 mm rosemary id pulmonary nodule in the right middle lobe. MEDIASTINUM: No pathologic mediastinal or hilar adenopathy. The thoracic aorta and pulmonary arteries are normal in caliber. Mild cardiomegaly. No pericardial effusion. Mild calcified coronary atheroscl erosis with post CABG changes. Right thyroid gland is not visualized. Left thyroid gland and esophagu s are unremarkable. AXILLA/SOFT TISSUE: No supraclavicular or axillary adenopathy. Regional soft tissues are within higinio l limits. UPPER ABDOMEN: Moderate size hiatal hernia. There is a 2.1 cm simple appearing cyst in the right hepa tic lobe, unchanged since 2009. Subcentimeter hypodensity in the right hepatic lobe, too small to marce racterize. Severe atrophic pancreatic parenchyma with fat infiltration. Linear shape 2.0 cm fat densi ty structure in the gastric fundus, likely ingested material. BONES: No evidence of acute fractures or aggressive osseous lesions. Multilevel degenerative changes in the thoracic spine. Median sternotomy wires. IMPRESSION: 1. No acute pulmonary abnormality. No findings to suggest interstitial lung disease. 2. A 3 mm solid pulmonary nodule in the right middle lobe. High-risk patient, consider 12 months fol low-up with CT chest. 3. Moderate size hiatal hernia, new since 2009. Electronically signed by: Socorro Williamson MD (06/03/2021 12:43 PM) [facility]
== END ==
LOC: KCIC CT 10:15
PROVIDERS: ATTEND Family Medicine
DX: R91.1 Solitary pulmonary nodule (principal); K44.9 Diaphragmatic hernia without obstruction or gangrene; I51.7 Cardiomegaly; I25.10 Atherosclerotic heart disease of native coronary artery without angina pectoris; R05.3 Chronic cough; R06.09 Other forms of dyspnea; M47.814 Spondylosis without myelopathy or radiculopathy, thoracic region; Z95.1 Presence of aortocoronary bypass graft
CPT/HCPCS: 71250

== ENCOUNTER 2021-07-21 10:35 | Inpatient (IN) | payer MEDICARE, OTHER ==
[~2021-07-21] VITALS: Ht 160 cm; Wt 86.6 kg
--- NOTE | 2021-07-21 11:21 | RAD ---
XR CHEST 1V CLINICAL INDICATIONS: Reason: chest pain / Spl. Instructions: / History: COMPARISON: April 06, 2018. Findings: No acute lung infiltrate or pleural effusion or pulmonary edema or lung mass or pneumothora x is seen. The heart size, pulmonary vasculature, mediastinum and both ifeanyi are stable. IMPRESSION: No acute radiographic abnormality is seen. Electronically signed by: Bulmaro Bolaños MD (07/21/2021 11:19 AM) [id number]
[2021-07-21 11:23] LABS: BASO % 0 % (0-3); EOS # 0.1 x10^3/uL (0.0-0.7); EOS % 1 % (0-3); HEMATOCRIT 47.7 % (36.0-47.0); HEMOGLOBIN 15.5 g/dL (12.0-15.5); LYMPH # 1.4 x10^3/uL (1.0-4.8); LYMPH % 22 % (24-48); MEAN CORPUSCULAR HEMOGLOBIN 29 pg (25-35); MEAN CORPUSCULAR HGB CONC 33 g/dL (31-37); MEAN CORPUSCULAR VOLUME 89 fL (79-100); MONO # 0.6 x10^3/uL (0.0-1.1); MONO % 10 % (0-9); NEUT # 4.1 x10^3/uL (1.8-7.7); NEUT % 67 % (31-73); PLATELET COUNT 162 x10^3/uL (140-400); RED BLOOD COUNT 5.38 x10^6/uL (3.50-5.40); WHITE BLOOD COUNT 6.2 x10^3/uL (4.0-11.0)
--- NOTE | 2021-07-21 11:32 | PHYS DOC ---
Past Medical History Past Medical History: Anxiety, GERD, Hypertension Additional Past Medical Histor: MACULAR DEGENERATION,TONSIL CA Past Surgical History: Cancer Surgery, Hysterectomy, Tonsillectomy Additional Past Surgical Histo: MITRAL VALVE REPLACEMENT,CARCINOMA,R. MINISCUS RX,PARATHYROID Smoking Status: Never Smoker Alcohol Use: None Drug Use: Benzodiazepine General Adult EDM: Chief Complaint: CHEST PAIN HPI: HPI: Patient is a 71 year old female who presents with this past Wednesday per Dr. Rizvi office called her on the phone and took her off of flecainide and propanolol and put her on amlodipine 5 mg. Patient states that since states she began taking the amlodipine but has been having palpitations and shortness of breath. She states on Wednesday she got a really bad headache, near syncope and nausea. She does take a baby aspirin a day. Patient has a history of mitral valve replacement, DVT, of valvular disease, tonsil cancer, tonsillectomy, anxiety, high cholesterol, GERD, hypertension, CHF. Currently denies chest pain, headache, dizziness, vision change, numbness tingling, focal weakness, urinary symptoms, back pain, abdominal pain, nausea, vomiting, fever, diarrhea. Review of Systems: Review of Systems: Constitutional: Denies fever or chills. [] Eyes: Denies change in visual acuity. [] HENT: Denies nasal congestion or sore throat. [] Respiratory: Denies cough or +shortness of breath. [] Cardiovascular: + chest pain or denies edema. + Palpitations [] GI: Denies abdominal pain, +nausea, denies vomiting, bloody stools or diarrhea. [] : Denies dysuria. [] Musculoskeletal: Denies back pain or joint pain. [] Integument: Denies rash. [] Neurologic: +headache, denies focal weakness or sensory changes. [] Endocrine: Denies polyuria or polydipsia. [] Lymphatic: Denies swollen glands. [] Psychiatric: Denies depression or anxiety. [] Heart Score: C/O Chest Pain: Yes HEART Score for Chest Pain: HEART Score for Chest Pain Response (Comments) Value History Slighlty/Non-Suspicious 0 ECG Nonspecific Repolarizatio 1 Age > 65 2 Risk Factors >3 Risk Factors or Hx CAD 2 Troponin < Normal Limit 0 Total 5 Risk Factors: Risk Factors: DM, Current or recent (<one month) smoker, HTN, HLP, family history of CAD, obesity. Risk Scores: Score 0 - 3: 2.5% MACE over next 6 weeks - Discharge Home Score 4 - 6: 20.3% MACE over next 6 weeks - Admit for Clinical Observation Score 7 - 10: 72.7% MACE over next 6 weeks - Early Invasive Strategies Allergies: Allergies: Allergies Coded Allergies Type Severity Reaction Last Updated Verified ketorolac Allergy Severe Swelling 02/07/16 Yes cephalexin Allergy Intermediate 02/07/16 Yes ciprofloxacin Allergy Intermediate 02/11/16 Yes clindamycin Allergy Intermediate 02/07/16 Yes sulfamethoxazole Allergy Intermediate 02/07/16 Yes trimethoprim Allergy Intermediate 02/07/16 Yes nitrofurantoin Allergy Unknown Rash 02/07/16 Yes Physical Exam: PE: Constitutional: Well developed, well nourished, no acute distress, non-toxic appearance. [] HENT: Normocephalic, atraumatic, bilateral external ears normal, oropharynx moist, no oral exudates, nose normal. [] Eyes: PERRLA, EOMI, conjunctiva normal, no discharge. [] Neck: Normal range of motion, no tenderness, supple, no stridor. [] Cardiovascular:Heart rate irregular rhythm, no murmur [] Lungs & Thorax: Bilateral breath sounds clear to auscultation [] Abdomen: Bowel sounds normal, soft, no tenderness, no masses, no pulsatile masses. [] Skin: Warm, dry, no erythema, no rash. [] Back: No tenderness, no CVA tenderness. [] Extremities: No tenderness, no cyanosis, no clubbing, ROM intact, no edema. [] Neurologic: Alert and oriented X 3, normal motor function, normal sensory function, no focal deficits noted. [] Psychologic: Affect normal, judgement normal, mood normal. [] Current Patient Data: Vital Signs: Vital Signs Date Time Temp Pulse Resp B/P (MAP) Pulse Ox O2 Delivery O2 Flow Rate FiO2 07/21/21 10:37 96.6 102 20 166/76 (106) 98 Room Air 96.6 EKG: EK and read by Dr. Gupta is a irregular A. fib, no STEMI [] Radiology/Procedures: Radiology/Procedures: [] Impression: [facility] [address] [place] [address] IMAGING REPORT Signed PATIENT: NICOLE MICHEL: [id number] : 1950 LOCATION: ER AGE: 71 SEX: F EXAM STATUS: PRE ER ORD. PHYSICIAN: TWYLA KEITH APRN REASON: chest pain PROCEDURE: PORTABLE CHEST 1V XR CHEST 1V CLINICAL INDICATIONS: Reason: chest pain / Spl. Instructions: / History: COMPARISON: April 06, 2018. Findings: No acute lung infiltrate or pleural effusion or pulmonary edema or lung mass or pneumothorax is seen. The heart size, pulmonary vasculature, mediastinum and both ifeanyi are stable. IMPRESSION: No acute radiographic abnormality is seen. Electronically signed by: Trudi Bolaños MD (07/21/2021 11:19 AM) [id number] DICTATED and SIGNED BY: TRUDI BOLAÑOS MD DATE: 07/21/21 [id number] [facility] [address] [place] [address] IMAGING REPORT Signed PATIENT: NICOLE MICHEL: [id number] : 1950 LOCATION: ER AGE: 71 SEX: F EXAM STATUS: REG ER ORD. PHYSICIAN: TWYLA KEITH APRN REASON: HEADACHE WITH NEAR SYNCOPE, TAKE ASPIRIN PROCEDURE: CT HEAD WO CONTRAST CT HEAD/BRAIN WO History: Headache with near syncope. Comparison: None. Technique: Noncontrast CT imaging was performed of the head. Findings: No intracranial hemorrhage. No mass effect. No hydrocephalus. No evidence of acute territorial infarction. Imaged orbits are unremarkable. Imaged paranasal sinuses and mastoid air cells are clear. Left posterior parietal skull outer table osseous protuberance. No acute osseous abnormality. The scalp is unremarkable. Impression: 1. No acute intracranial abnormality. ----- Exposure: One or more of the following individualized dose reduction techniques were utilized for this examination: 1. Automated exposure control 2. Adjustment of the mA and/or kV according to patient size 3. Use of iterative reconstruction technique. Electronically signed by: Umberto Epstein MD (07/21/2021 11:32 AM) [facility] DICTATED and SIGNED BY: UMBERTO EPSTEIN MD DATE: 07/21/21 [id number] 0 Course & Med Decision Making: Course & Med Decision Making Pertinent Labs and Imaging studies reviewed. (See chart for details) See HPI. Alert and oriented x4. Ambulatory steady gait. Speaks in full clear sentences. No extremity swelling. EKG today shows a controlled rate A. fib but no STEMI. Skin pink warm and dry. Afebrile. Patient will be admitted to hospitalist per her history and current complaints. Blood work is unremarkable. Chest x-ray shows no acute findings. CT of the head shows no acute findings. Due to patient being in A. fib, chest pain and with her medical history she is admitted to the hospital. [] Dragon Disclaimer: Dragon Disclaimer: This electronic medical record was generated, in whole or in part, using a voice recognition dictation system. Departure Departure Impression: Primary Impression: Afib Qualified Codes: I48.91 - Unspecified atrial fibrillation Additional Impressions: Shortness of breath Chest discomfort Disposition: ADMITTED INPATIENT Admitting Physician: EUSEBIA Condition: STABLE Referrals: JANET YI MD (PCP) TWYLA KEITH APRN Jul 21, 2021 11:32
--- NOTE | 2021-07-21 11:35 | RAD ---
CT HEAD/BRAIN WO History: Headache with near syncope. Comparison: None. Technique: Noncontrast CT imaging was performed of the head. Findings: No intracranial hemorrhage. No mass effect. No hydrocephalus. No evidence of acute territorial infar ction. Imaged orbits are unremarkable. Imaged paranasal sinuses and mastoid air cells are clear. Left seat nailer ior parietal skull outer table osseous protuberance. No acute osseous abnormality. The scalp is unrem arkable. Impression: 1. No acute intracranial abnormality. ----- Exposure: One or more of the following individualized dose reduction techniques were utilized for thi s examination: 1. Automated exposure control 2. Adjustment of the mA and/or kV according to patient size 3. Use of iterative reconstruction technique. Electronically signed by: Umberto Castillo MD (07/21/2021 11:32 AM) [facility]
[2021-07-21 11:37] LABS: CREATININE 0.8 mg/dL (0.6-1.0); GFR 70.3; POTASSIUM 4.1 mmol/L (3.5-5.1)
[2021-07-21 11:39] LABS: PROTHROMBIN TIME PATIENT 12.9 SEC (11.7-14.0)
[2021-07-21 11:49] LABS: ALBUMIN 4.2 g/dL (3.4-5.0); ALBUMIN/GLOBULIN RATIO 1.1 (1.0-1.7); MAGNESIUM 2.5 mg/dL (1.8-2.4); TOTAL BILIRUBIN 0.8 mg/dL (0.2-1.0); TOTAL PROTEIN 7.9 g/dL (6.4-8.2)
--- NOTE | 2021-07-21 12:40 | PDOC2 ---
NACHOKADEN COLIN STEFANI 07/21/21 1239: CARDIAC CONSULT DATE OF CONSULT Date of Consult DATE: 07/21/21 TIME: 12:37 REASON FOR CONSULT Reason for Consult: AFIB, chest pain REFERRING PHYSICIAN Referring Physician: Marine Boyd APRN SOURCE Source: Chart review, Patient HISTORY OF PRESENT ILLNESS HISTORY OF PRESENT ILLNESS This is a 71 yo female who presented secondary to palpitations and shortness of breath. Patients has a history of frequent PVC's. Was initiated on flecainide by Dr. Velazquez many years ago. Was also on Bystolic at that time. Last year, patient was started on propranolol as her insurance would no longer cover Bystolic. Patient reports frequent headaches and fatigue since starting propranolol. In May she reported these complaints to PCP who considered discontinuing propranolol at that time as this may have been causing her symptoms. Patient was more fatigued last week and was noted to be bradycardiac with HR in the upper 40's and low 50's. She contacted her primary lead mechanic o n Wednesday. He instructed her to discontinue flecainide and propranolol and start amlodipine. Although she reports an improvement in fatigue, she has experienced a fluttering in her chest since discontinuing these medications. Reports feeling like her heart is flopping around. This has progressively worsened and made her feel short of breath at time so she came to the ED for further evaluation and treatment. She denies any chest pain, dizziness, diaphoresis, or nausea/vomiting. No recent fevers or illness. PAST MEDICAL HISTORY Cardiovascular: HTN, Hyperlipidemia, Valve insufficiency (s/p mitral valve replacement ) GI: GERD PAST SURGICAL HISTORY Past Surgical History: Other (mitral valve replacement ) FAMILY HISTORY Family History: Heart Disease SOCIAL HISTORY Smoke: No ALCOHOL: none Drugs: None Lives: with Family ALLERGIES ALLERGIES: Coded Allergies: ketorolac (Verified Allergy, Severe, Swelling, 02/07/16) cephalexin (Verified Allergy, Intermediate, 02/07/16) ciprofloxacin (Verified Allergy, Intermediate, 02/11/16) levaquin given pre-op - no allergic reaction reported clindamycin (Verified Allergy, Intermediate, 02/07/16) sulfamethoxazole (Verified Allergy, Intermediate, 02/07/16) trimethoprim (Verified Allergy, Intermediate, 02/07/16) nitrofurantoin (Verified Allergy, Unknown, Rash, 02/07/16) ROS Review of System 14 point ROS conducted with pertinent positives noted above in HPI PHYSICAL EXAM General: Alert, Oriented X3, Cooperative, No acute distress HEENT: Atraumatic Lungs: Clear to auscultation Heart: Regular rate (SR with frequent PAC's ) Abdomen: Soft, No tenderness Extremities: No edema, Normal pulses Skin: No significant lesion Neuro: Normal speech, Sensation intact Psych/Mental Status: Mental status NL, Other (anxious ) MUSCULOSKELETAL: Osteoarthritic changes both hands VITALS/I&O VITALS/I&O: Vital Signs Date Time Temp Pulse Resp B/P (MAP) Pulse Ox O2 Delivery O2 Flow Rate FiO2 07/21/21 10:37 96.6 102 20 166/76 (106) 98 Room Air 96.6 LABS Lab: Laboratory Tests Test 07/21/21 10:19 07/21/21 11:00 SARS-CoV-2 Antigen (Rapid) Negative (NEGATIVE) White Blood Count 6.2 x10^3/uL (4.0-11.0) Red Blood Count 5.38 x10^6/uL (3.50-5.40) Hemoglobin 15.5 g/dL (12.0-15.5) Hematocrit 47.7 % (36.0-47.0) H Mean Corpuscular Volume 89 fL (79-100) Mean Corpuscular Hemoglobin 29 pg (25-35) Mean Corpuscular Hemoglobin Concent 33 g/dL (31-37) Red Cell Distribution Width 14.0 % (11.5-14.5) Platelet Count 162 x10^3/uL (140-400) Neutrophils (%) (Auto) 67 % (31-73) Lymphocytes (%) (Auto) 22 % (24-48) L Monocytes (%) (Auto) 10 % (0-9) H Eosinophils (%) (Auto) 1 % (0-3) Basophils (%) (Auto) 0 % (0-3) Neutrophils # (Auto) 4.1 x10^3/uL (1.8-7.7) Lymphocytes # (Auto) 1.4 x10^3/uL (1.0-4.8) Monocytes # (Auto) 0.6 x10^3/uL (0.0-1.1) Eosinophils # (Auto) 0.1 x10^3/uL (0.0-0.7) Basophils # (Auto) 0.0 x10^3/uL (0.0-0.2) Prothrombin Time 12.9 SEC (11.7-14.0) Prothrombin Time INR 1.0 (0.8-1.1) Activated Partial Thromboplast Time 35 SEC (24-38) Sodium Level 143 mmol/L (136-145) Potassium Level 4.1 mmol/L (3.5-5.1) Chloride Level 105 mmol/L (98-107) Carbon Dioxide Level 28 mmol/L (21-32) Anion Gap 10 (6-14) Blood Urea Nitrogen 10 mg/dL (7-20) Creatinine 0.8 mg/dL (0.6-1.0) Estimated GFR (Cockcroft-Gault) 70.3 BUN/Creatinine Ratio 13 (6-20) Glucose Level 124 mg/dL (70-99) H Calcium Level 10.0 mg/dL (8.5-10.1) Magnesium Level 2.5 mg/dL (1.8-2.4) H Total Bilirubin 0.8 mg/dL (0.2-1.0) Aspartate Amino Transferase (AST) 18 U/L (15-37) Alanine Aminotransferase (ALT) 34 U/L (14-59) Alkaline Phosphatase 113 U/L (46-116) Troponin I High Sensitivity 9 ng/L (4-50) RM-Mpl-Z-Type Natriuretic Peptide 223 pg/mL (0-124) H Total Protein 7.9 g/dL (6.4-8.2) Albumin 4.2 g/dL (3.4-5.0) Albumin/Globulin Ratio 1.1 (1.0-1.7) Lipase 54 U/L (73-393) L Laboratory Tests 07/21/21 11:00 Laboratory Tests 07/21/21 11:00 EKG EKG Date of Study: 01/02/20 STUDY: Holter monitor. INDICATION: Palpitations and fluttering in the chest. INTERPRETATION: The patient was monitored for 13 days. Total monitored hours were 19. Long-term compliance monitor revealed occasional supraventricular extrasystoles and rare supraventricular extrasystoles. There was no episode of any sustained supraventricular tachycardia or ventricular tachycardia. There was no correlation to patient's symptoms of fluttering and cardiac arrhythmias. Please correlate this clinically. ECHOCARDIOGRAM ECHOCARDIOGRAM 04/04/21 - 2D + DOPPLER ECHO Interpretation Summary Normal left ventricular systolic function with an ejection fraction of 55%. Normal right ventricular size and probably normal function. Unable to assess diastolic function. No regional wall motion abnormality. Status post bioprosthetic valve in the mitral position. Mean gradient across the mitral valve 4 to 5 mmHg at a ventricular rate of 48 bpm Mild TR. Trileaflet aortic valve. No evidence of stenosis or regurgitation. No pericardial effusion. Visualized portions of the aortic root and ascending thoracic aorta are within normal limits. Estimated PA systolic pressure = 32 mmHg Estimated RA pressure = 3 mm Hg. Peak PA systolic pressure cannot be estimated. CVP cannot be estimated. Compared to January 2020 study. Continued preservation of LV systolic function. No interval change in the mean gradient across the bioprosthetic mitral valve estimated 4 to 5 mmHg. No significant mitral valve regurgitation observed. PA systolic pressures remained within normal limits. STRESS TEST STRESS TEST 08/25/18 - Procedure: D-SPECT MULTI GATED THALLIUM REGADENOSON MPI STRESS TEST SUMMARY/OPINION: This study is normal with no evidence of significant myocardial ischemia. Left ventricular systolic function is normal. There are no high risk prognostic indicators present. The pharmacologic ECG portion of the study is nondiagnostic for ischemia. Underlying sinus rhythm with a borderline nonspecific IVCD is present at baseline, and occasional supraventricular premature depolarizations and an isolated ventricular premature depolarization are noted with regadenoson. There are no prior studies available for comparison. In aggregate the current study is low ri ASSESSMENT/PLAN ASSESSMENT/PLAN 1. Palpitations with h/o frequent PVC's- was treated with flecainide (this was recently discontinued). Follows with [facility] 2. Arrhythmia; frequent PAC's. underlying SR. No AFIB noted. 3. Accelerated hypertension; propranolol recently discontinue due to fatigue (Has been told to avoid BB) 4. Hyperlipidemia; statin 5. Valvular disease; s/p bioprosthetic mitral valve replacement. stable per recent echo as noted above 6. GERD Recommendations Will convert amlodipine to Cardizem for arrhythmia suppression Do not resume flecainide, propranolol (these were discontinued last week) TSH level Add lisinopril for BP control ASA therapy Consider outpatient ischemic eval Supportive care F/u with EP as previously scheduled. SOHAIL NEUMANN MD 07/21/21 1723: CARDIAC CONSULT ASSESSMENT/PLAN ASSESSMENT/PLAN The patient was seen and interviewed as well as examined at the bedside. The chart was reviewed. The case was discussed. Agree with the plan of care. KADEN GRIFFITH APRN Jul 21, 2021 12:39 SOHAIL NEUMANN MD Jul 21, 2021 17:23
[2021-07-21 12:58] LABS: BILIRUBIN,URINE NEGATIVE (NEG); CLARITY,URINE CLEAR; COLOR,URINE YELLOW; NITRITE,URINE NEGATIVE (NEG); PH,URINE 6.5 (<5.0-8.0); PROTEIN,URINE NEGATIVE (NEG-TRACE); UROBILINOGEN,URINE 0.2 mg/dL (0.2 mg/dL)
[2021-07-21 13:10] LABS: BARBITURATES NEG (NEG); BENZODIAZEPINES POS (NEG); CANNABINOIDS NEG (NEG); COCAINE NEG (NEG); METHADONE NEG (NEG); OPIATES NEG (NEG); PHENCYCLIDINE NEG (NEG)
[2021-07-21 13:11] LABS: AMPHETAMINE/METHAMPHETAMINE NEG (NEG)
[2021-07-21 13:19] LABS: BACTERIA,URINE 0 /HPF (0-FEW); RBC,URINE 0 /HPF (0-2); WBC,URINE 0 /HPF (0-4)
--- NOTE | 2021-07-21 16:40 | PDOC1 ---
History and Physical Date of Admission Date of Admission DATE: 07/21/21 TIME: 16:35 Source Source: Chart review, Patient History of Present Illness History of Present Illness Ms. Storm is a 71 year old female with chest pain, and palpitations. Meds changed last week due to complaints, and stopped on flecainide and propanolol and put her on amlodipine 5 mg. She since then has been having feelings of her heart racing and sensation that her heart was trying to beat too hear, with shortness of breath. She has had headache for a week, has been compliant with meds, she reports recetn echo was reassuring, she is s/p mitral valve replacement, . Currently denies chest pain, Past Medical History Past Medical History DVT, tonsil cancer, tonsillectomy, anxiety, high cholesterol, GERD, hypertension, CHF Cardiovascular: HTN, Hyperlipidemia, Valve insufficiency (s/p mitral valve replacement ) GI: GERD Psych: Anxiety Musculoskeletal: Osteoarthritis Past Surgical History Past Surgical History: Other (mitral valve replacement ) Family History Family History: Heart Disease Social History Smoke: No ALCOHOL: none Drugs: None Current Problem List Problem List Problems Medical Problems: (1) Afib Status: Acute (2) Chest discomfort Status: Acute (3) Shortness of breath Status: Acute Current Medications Current Medications Current Medications Diltiazem HCl (Cardizem 24hr Cd) 120 mg DAILY PO Last administered on 07/21/21at 15:46; Start 07/21/21 at 15:30 Lisinopril (Prinivil) 10 mg DAILY PO ; Start 07/22/21 at 09:00 Aspirin (Ecotrin) 81 mg DAILYWBKFT PO ; Start 07/22/21 at 08:00 Active Scripts Active Reported Flecainide Acetate 100 Mg Tablet 1 Tab PO BID Citracal + D Er Tablet (Calcium Carb & Cit/Vitamin D3) 1 Each Tablet.er 1 Each PO BID Potassium Chloride 20 Meq Tablet.er 20 Meq PO DAILY Preservision Areds Tablet (Vit A/Vit C/Vit E/Zinc/Copper) 1 Each Tablet 1 Each PO BID Fish Oil 1,200 Mg Fish Oil (Fish Oil/Dha/Epa) 1 Each Capsule 1 Each PO DAILY Aspir 81 (Aspirin) 81 Mg Tablet. 1 Tab PO DAILY Prilosec Otc (Omeprazole Magnesium) 20 Mg Tablet.dr 40 Mg PO DAILY Bystolic (Nebivolol) 5 Mg Tablet 5 Mg PO DAILY Lipitor (Atorvastatin Calcium) 20 Mg Tablet 1 Tab PO HS Xanax (Alprazolam) 0.5 Mg Tablet 1 Tab PO TID Furosemide 20 Mg Tablet 1 Tab PO DAILY Allergies Allergies: Coded Allergies: ketorolac (Verified Allergy, Severe, Swelling, 02/07/16) cephalexin (Verified Allergy, Intermediate, 02/07/16) ciprofloxacin (Verified Allergy, Intermediate, 02/11/16) levaquin given pre-op - no allergic reaction reported clindamycin (Verified Allergy, Intermediate, 02/07/16) sulfamethoxazole (Verified Allergy, Intermediate, 02/07/16) trimethoprim (Verified Allergy, Intermediate, 02/07/16) nitrofurantoin (Verified Allergy, Unknown, Rash, 02/07/16) ROS General: YES: Fatigue, Malaise; No: Chills, Night Sweats, Appetite, Other PSYCHOLOGICAL ROS: YES: Anxiety; No: Behavioral Disorder, Concentration difficultie, Decreased libido, Depression, Disorientation, Hallucinations, Hostility, Irritablity, Memory difficulties, Mood Swings, Obsessive thoughts, Physical abuse, Sexual abuse, Sleep disturbances, Suicidal ideation, Other HEENT: YES: Heacaches; No: Visual Changes, Hearing change, Nasal congestion, Nasal discharge, Oral lesions, Sinus pain, Sore Throat, Epistaxis, Sneezing, Snoring, Tinnitus, Vertig o, Vocal changes, Other Respiratory: No: Cough, Hemoptysis, Orthopnea, Pleuritic Pain, Shortness of breath, SOB with excertion, Sputum Changes, Stridor, Tachypnea, Wheezing, Other Cardiovascular: yes Chest Pain, yes Palpitations; No Orthopnea, No Paroxysmal Noc. Dyspnea, No Edema, No Lt Headedness, No Other Gastrointestinal: No Nausea, No Vomiting, No Abdominal Pain, No Diarrhea, No Constipation, No Melena, No Hematochezia, No Other Genitourinary: No Dysuria, No Frequency, No Incontinence, No Hematuria, No Retention, No Discharge, No Urgency, No Pain, No Flank Pain, No Other, No , No , No , No , No , No , No Musculoskeletal: Yes Joint Stiffness; No Gait Disturbance, No Joint Pain, No Joint Swelling, No Muscle Pain, No Muscular Weakness, No Pain In:, No Swelling In:, No Other Neurological: No Behavorial Changes, No Bowel/Bladder ControlChng, No Confusion, No Dizziness, No Gait Disturbance, No Headaches, No Impaired Coord/balance, No Memory Loss, No Numbness/Tingling, No Seizures, No Speech Problems, No Tremors, No Visual Changes, No Weakness, No Other Skin: Yes Dry Skin; No Eczema, No Hair Changes, No Lumps, No Mole Changes, No Mottling, No Nail Changes, No Pruritus, No Rash, No Skin Lesion Changes, No Other, No Acne Physical Exam General: Alert, Oriented X3, Cooperative, No acute distress HEENT: Atraumatic Lungs: Clear to auscultation, Normal air movement Heart: no gallops, no murmurs, irregularly irregular (PAC on monitor) Abdomen: Normal bowel sounds, Soft Extremities: No cyanosis, No edema, Normal pulses Skin: No breakdown Neuro: Normal tone Psych/Mental Status: Mood NL Vitals Vitals Vital Signs Date Time Temp Pulse Resp B/P (MAP) Pulse Ox O2 Delivery O2 Flow Rate FiO2 07/21/21 16:20 82 147/77 (100) 98 Room Air 07/21/21 10:37 96.6 20 96.6 Labs Labs Laboratory Tests Test 07/21/21 10:19 07/21/21 11:00 07/21/21 12:13 07/21/21 13:40 SARS-CoV-2 Antigen (Rapid) Negative (NEGATIVE) White Blood Count 6.2 x10^3/uL (4.0-11.0) Red Blood Count 5.38 x10^6/uL (3.50-5.40) Hemoglobin 15.5 g/dL (12.0-15.5) Hematocrit 47.7 % (36.0-47.0) Mean Corpuscular Volume 89 fL (79-100) Mean Corpuscular Hemoglobin 29 pg (25-35) Mean Corpuscular Hemoglobin Concent 33 g/dL (31-37) Red Cell Distribution Width 14.0 % (11.5-14.5) Platelet Count 162 x10^3/uL (140-400) Neutrophils (%) (Auto) 67 % (31-73) Lymphocytes (%) (Auto) 22 % (24-48) Monocytes (%) (Auto) 10 % (0-9) Eosinophils (%) (Auto) 1 % (0-3) Basophils (%) (Auto) 0 % (0-3) Neutrophils # (Auto) 4.1 x10^3/uL (1.8-7.7) Lymphocytes # (Auto) 1.4 x10^3/uL (1.0-4.8) Monocytes # (Auto) 0.6 x10^3/uL (0.0-1.1) Eosinophils # (Auto) 0.1 x10^3/uL (0.0-0.7) Basophils # (Auto) 0.0 x10^3/uL (0.0-0.2) Prothrombin Time 12.9 SEC (11.7-14.0) Prothromb Time International Ratio 1.0 (0.8-1.1) Activated Partial Thromboplast Time 35 SEC (24-38) Sodium Level 143 mmol/L (136-145) Potassium Level 4.1 mmol/L (3.5-5.1) Chloride Level 105 mmol/L (98-107) Carbon Dioxide Level 28 mmol/L (21-32) Anion Gap 10 (6-14) Blood Urea Nitrogen 10 mg/dL (7-20) Creatinine 0.8 mg/dL (0.6-1.0) Estimated GFR (Cockcroft-Gault) 70.3 BUN/Creatinine Ratio 13 (6-20) Glucose Level 124 mg/dL (70-99) Calcium Level 10.0 mg/dL (8.5-10.1) Magnesium Level 2.5 mg/dL (1.8-2.4) Total Bilirubin 0.8 mg/dL (0.2-1.0) Aspartate Amino Transf (AST/SGOT) 18 U/L (15-37) Alanine Aminotransferase (ALT/SGPT) 34 U/L (14-59) Alkaline Phosphatase 113 U/L (46-116) Troponin I High Sensitivity 9 ng/L (4-50) 11 ng/L (4-50) TH-Ltj-O-Type Natriuretic Peptide 223 pg/mL (0-124) Total Protein 7.9 g/dL (6.4-8.2) Albumin 4.2 g/dL (3.4-5.0) Albumin/Globulin Ratio 1.1 (1.0-1.7) Lipase 54 U/L (73-393) Urine Collection Type Unknown Urine Color Yellow Urine Clarity Clear Urine pH 6.5 (<5.0-8.0) Urine Specific [place] <=1.005 (1.000-1.030) Urine Protein Negative mg/dL (NEG-TRACE) Urine Glucose (UA) Negative mg/dL (NEG) Urine Ketones (Stick) Negative mg/dL (NEG) Urine Blood Negative (NEG) Urine Nitrite Negative (NEG) Urine Bilirubin Negative (NEG) Urine Urobilinogen Dipstick 0.2 mg/dL (0.2 mg/dL) Urine Leukocyte Esterase Negative (NEG) Urine RBC 0 /HPF (0-2) Urine WBC 0 /HPF (0-4) Urine Squamous Epithelial Cells Occ /LPF Urine Bacteria 0 /HPF (0-FEW) Urine Opiates Screen Neg (NEG) Urine Methadone Screen Neg (NEG) Urine Barbiturates Neg (NEG) Urine Phencyclidine Screen Neg (NEG) Urine Amphetamine/Methamphetamine Neg (NEG) Urine Benzodiazepines Screen Pos (NEG) Urine Cocaine Screen Neg (NEG) Urine Cannabinoids Screen Neg (NEG) Urine Ethyl Alcohol Neg (NEG) Thyroid Stimulating Hormone (TSH) 0.839 uIU/mL (0.358-3.74) Laboratory Tests Test 07/21/21 10:19 07/21/21 11:00 07/21/21 12:13 07/21/21 13:40 SARS-CoV-2 Antigen (Rapid) Negative (NEGATIVE) White Blood Count 6.2 x10^3/uL (4.0-11.0) Red Blood Count 5.38 x10^6/uL (3.50-5.40) Hemoglobin 15.5 g/dL (12.0-15.5) Hematocrit 47.7 % (36.0-47.0) Mean Corpuscular Volume 89 fL (79-100) Mean Corpuscular Hemoglobin 29 pg (25-35) Mean Corpuscular Hemoglobin Concent 33 g/dL (31-37) Red Cell Distribution Width 14.0 % (11.5-14.5) Platelet Count 162 x10^3/uL (140-400) Neutrophils (%) (Auto) 67 % (31-73) Lymphocytes (%) (Auto) 22 % (24-48) Monocytes (%) (Auto) 10 % (0-9) Eosinophils (%) (Auto) 1 % (0-3) Basophils (%) (Auto) 0 % (0-3) Neutrophils # (Auto) 4.1 x10^3/uL (1.8-7.7) Lymphocytes # (Auto) 1.4 x10^3/uL (1.0-4.8) Monocytes # (Auto) 0.6 x10^3/uL (0.0-1.1) Eosinophils # (Auto) 0.1 x10^3/uL (0.0-0.7) Basophils # (Auto) 0.0 x10^3/uL (0.0-0.2) Prothrombin Time 12.9 SEC (11.7-14.0) Prothromb Time International Ratio 1.0 (0.8-1.1) Activated Partial Thromboplast Time 35 SEC (24-38) Sodium Level 143 mmol/L (136-145) Potassium Level 4.1 mmol/L (3.5-5.1) Chloride Level 105 mmol/L (98-107) Carbon Dioxide Level 28 mmol/L (21-32) Anion Gap 10 (6-14) Blood Urea Nitrogen 10 mg/dL (7-20) Creatinine 0.8 mg/dL (0.6-1.0) Estimated GFR (Cockcroft-Gault) 70.3 BUN/Creatinine Ratio 13 (6-20) Glucose Level 124 mg/dL (70-99) Calcium Level 10.0 mg/dL (8.5-10.1) Magnesium Level 2.5 mg/dL (1.8-2.4) Total Bilirubin 0.8 mg/dL (0.2-1.0) Aspartate Amino Transf (AST/SGOT) 18 U/L (15-37) Alanine Aminotransferase (ALT/SGPT) 34 U/L (14-59) Alkaline Phosphatase 113 U/L (46-116) Troponin I High Sensitivity 9 ng/L (4-50) 11 ng/L (4-50) GO-Ygm-C-Type Natriuretic Peptide 223 pg/mL (0-124) Total Protein 7.9 g/dL (6.4-8.2) Albumin 4.2 g/dL (3.4-5.0) Albumin/Globulin Ratio 1.1 (1.0-1.7) Lipase 54 U/L (73-393) Urine Collection Type Unknown Urine Color Yellow Urine Clarity Clear Urine pH 6.5 (<5.0-8.0) Urine Specific [place] <=1.005 (1.000-1.030) Urine Protein Negative mg/dL (NEG-TRACE) Urine Glucose (UA) Negative mg/dL (NEG) Urine Ketones (Stick) Negative mg/dL (NEG) Urine Blood Negative (NEG) Urine Nitrite Negative (NEG) Urine Bilirubin Negative (NEG) Urine Urobilinogen Dipstick 0.2 mg/dL (0.2 mg/dL) Urine Leukocyte Esterase Negative (NEG) Urine RBC 0 /HPF (0-2) Urine WBC 0 /HPF (0-4) Urine Squamous Epithelial Cells Occ /LPF Urine Bacteria 0 /HPF (0-FEW) Urine Opiates Screen Neg (NEG) Urine Methadone Screen Neg (NEG) Urine Barbiturates Neg (NEG) Urine Phencyclidine Screen Neg (NEG) Urine Amphetamine/Methamphetamine Neg (NEG) Urine Benzodiazepines Screen Pos (NEG) Urine Cocaine Screen Neg (NEG) Urine Cannabinoids Screen Neg (NEG) Urine Ethyl Alcohol Neg (NEG) Thyroid Stimulating Hormone (TSH) 0.839 uIU/mL (0.358-3.74) VTE Prophylaxis Ordered VTE Prophylaxis Devices: No VTE Pharmacological Prophylaxi: Yes Assessment/Plan Assessment/Plan chest pain palpitations PAC, PVC prior symptomatic raj, has been stopped from taking b-blockers by Dr. Loja partner last week obese, BMI 35 Justifications for Admission Other Justification OCTAVIO WILKINS MD Jul 21, 2021 16:40
--- NOTE | 2021-07-21 18:22 | EKG ---
[facility] [address] [place] [address] Test Date: 2021-07-21 Test Time: 10:44:35 Pat Name: NICOLE MICHEL Department: Room: Gender: F Hypertrichologist: : [id number] Requested By: TWYLA KEITH Order Number: [id number] Reading MD: Pradeep Henriquez Measurements Intervals [place] Rate: 102 P: 26 FL: 166 QRS: -24 QRSD: 84 T: 36 QT: 354 QTc: 466 Interpretive Statements SINUS TACHYCARDIA ATRIAL PREMATURE COMPLEX(ES) NON SPECIFIC ST-T WAVE CHANGES Electronically Signed On 07-22-2021 12:36:26 INDUSTRIAL CHEMIST by Pradeep Henriquez
[2021-07-21 19:00] VITALS: BP 137/76
[2021-07-21] MEDS ORDERED: AMLO-186 PO (19:37)
[2021-07-21] MEDS: ALPRAZolam 0.5 MG TABLET PO SCH (20:44)
[2021-07-21] MEDS ORDERED: ATORVASTATIN CALCIUM 20 MG TABLET PO SCH (21:00)
[2021-07-21 23:04] VITALS: BP 136/67
[2021-07-22 03:00] VITALS: BP 144/61
[2021-07-22] MEDS: ALPRAZolam 0.5 MG TABLET PO SCH (05:44)
[2021-07-22] MEDS ORDERED: PANTOPRAZOLE 40 MG TABLET.DR. PO SCH (06:00)
[2021-07-22 07:00] VITALS: BP 139/63
[2021-07-22] MEDS ORDERED: ASPIRIN ENTERIC COATED 81 MG TABLET.DR. PO SCH ×2 (08:00→09:00)
[2021-07-22] MEDS ORDERED: LISINOPRIL 10 MG TABLET PO SCH (09:00)
[2021-07-22] MEDS ORDERED: POTASSIUM CHLORIDE 20 MEQ TABLET.ER. PO SCH (09:00)
[2021-07-22] MEDS ORDERED: FUROSEMIDE 20 MG TABLET PO SCH (09:00)
--- NOTE | 2021-07-22 09:54 | PDOC ---
KADEN GRIFFITH [employer] RULE INSPECTOR 07/22/21 0954: CARDIO Progress Notes Date and Time Date of Service 07/22/21 Time of Evaluation 0950 Subjective Subjective: No Chest Pain, No shortness of breath, Other (c/o MONTERO, occasional palpitations) Comments: feels "not right" after taking meds this morning. Thinks it's lisinopril Vitals Vitals Vital Signs Date Time Temp Pulse Resp B/P (MAP) Pulse Ox O2 Delivery O2 Flow Rate FiO2 07/22/21 09:35 93 139/63 07/22/21 07:00 97.6 19 92 Room Air 97.6 Weight Weight [ ] Input and Output Intake and Output Intake and Output 07/22/21 07:00 Intake Total 0 ml Balance 0 ml Intake Oral 0 ml # Voids 1 Laboratory Labs Laboratory Tests Test 07/21/21 10:19 07/21/21 11:00 07/21/21 12:13 07/21/21 13:40 SARS-CoV-2 Antigen (Rapid) Negative (NEGATIVE) White Blood Count 6.2 x10^3/uL (4.0-11.0) Red Blood Count 5.38 x10^6/uL (3.50-5.40) Hemoglobin 15.5 g/dL (12.0-15.5) Hematocrit 47.7 % (36.0-47.0) Mean Corpuscular Volume 89 fL (79-100) Mean Corpuscular Hemoglobin 29 pg (25-35) Mean Corpuscular Hemoglobin Concent 33 g/dL (31-37) Red Cell Distribution Width 14.0 % (11.5-14.5) Platelet Count 162 x10^3/uL (140-400) Neutrophils (%) (Auto) 67 % (31-73) Lymphocytes (%) (Auto) 22 % (24-48) Monocytes (%) (Auto) 10 % (0-9) Eosinophils (%) (Auto) 1 % (0-3) Basophils (%) (Auto) 0 % (0-3) Neutrophils # (Auto) 4.1 x10^3/uL (1.8-7.7) Lymphocytes # (Auto) 1.4 x10^3/uL (1.0-4.8) Monocytes # (Auto) 0.6 x10^3/uL (0.0-1.1) Eosinophils # (Auto) 0.1 x10^3/uL (0.0-0.7) Basophils # (Auto) 0.0 x10^3/uL (0.0-0.2) Prothrombin Time 12.9 SEC (11.7-14.0) Prothromb Time International Ratio 1.0 (0.8-1.1) Activated Partial Thromboplast Time 35 SEC (24-38) Sodium Level 143 mmol/L (136-145) Potassium Level 4.1 mmol/L (3.5-5.1) Chloride Level 105 mmol/L (98-107) Carbon Dioxide Level 28 mmol/L (21-32) Anion Gap 10 (6-14) Blood Urea Nitrogen 10 mg/dL (7-20) Creatinine 0.8 mg/dL (0.6-1.0) Estimated GFR (Cockcroft-Gault) 70.3 BUN/Creatinine Ratio 13 (6-20) Glucose Level 124 mg/dL (70-99) Calcium Level 10.0 mg/dL (8.5-10.1) Magnesium Level 2.5 mg/dL (1.8-2.4) Total Bilirubin 0.8 mg/dL (0.2-1.0) Aspartate Amino Transf (AST/SGOT) 18 U/L (15-37) Alanine Aminotransferase (ALT/SGPT) 34 U/L (14-59) Alkaline Phosphatase 113 U/L (46-116) Troponin I High Sensitivity 9 ng/L (4-50) 11 ng/L (4-50) JR-Ctp-X-Type Natriuretic Peptide 223 pg/mL (0-124) Total Protein 7.9 g/dL (6.4-8.2) Albumin 4.2 g/dL (3.4-5.0) Albumin/Globulin Ratio 1.1 (1.0-1.7) Lipase 54 U/L (73-393) Urine Collection Type Unknown Urine Color Yellow Urine Clarity Clear Urine pH 6.5 (<5.0-8.0) Urine Specific [place] <=1.005 (1.000-1.030) Urine Protein Negative mg/dL (NEG-TRACE) Urine Glucose (UA) Negative mg/dL (NEG) Urine Ketones (Stick) Negative mg/dL (NEG) Urine Blood Negative (NEG) Urine Nitrite Negative (NEG) Urine Bilirubin Negative (NEG) Urine Urobilinogen Dipstick 0.2 mg/dL (0.2 mg/dL) Urine Leukocyte Esterase Negative (NEG) Urine RBC 0 /HPF (0-2) Urine WBC 0 /HPF (0-4) Urine Squamous Epithelial Cells Occ /LPF Urine Bacteria 0 /HPF (0-FEW) Urine Opiates Screen Neg (NEG) Urine Methadone Screen Neg (NEG) Urine Barbiturates Neg (NEG) Urine Phencyclidine Screen Neg (NEG) Urine Amphetamine/Methamphetamine Neg (NEG) Urine Benzodiazepines Screen Pos (NEG) Urine Cocaine Screen Neg (NEG) Urine Cannabinoids Screen Neg (NEG) Urine Ethyl Alcohol Neg (NEG) Thyroid Stimulating Hormone (TSH) 0.839 uIU/mL (0.358-3.74) Test 07/21/21 16:29 Troponin I High Sensitivity 15 ng/L (4-50) Physical Exam Chest: Symmetric LUNGS: Clear to Auscultation Heart: RRR (SR with PAC's ) Abdomen: Soft N/T Extremities: No Edema Neurology: alert, oriented, follow commands, other (anxious ) Assessment Assessment 1. Palpitations with h/o frequent PVC's- previously on flecainide; this was discontinued last week. Follows with [facility] 2. Arrhythmia; frequent PAC's. underlying SR. No AFIB noted. Improved with Cardizem 3. Accelerated hypertension; now controlled 4. Hyperlipidemia; statin 5. Valvular disease; s/p bioprosthetic mitral valve replacement. stable per recent echo 6. GERD 7. Anxiety Recommendations Continue Cardizem Discontinue lisinopril (patient reports this made her not feel well) ASA therapy Supportive care Okay to discharge from a CV standpoint F/u with EP, Dr. Pinto as previously scheduled and primary cafe associate, Dr. Rizvi/ Dr. Almeida Justicifation of Admission Dx: Justifications for Admission: Justification of Admission Dx: Yes CHF: Cardiac Arrhythmias (palpitations, frequent PAC's) SOHAIL NEUMANN MD 07/22/21 1612: CARDIO Progress Notes Plan Plan Pt. seen and examined. Agree with above MANUFACTURING WEAVER note. Spoke to patients primary cafe associate at [facility]. He will f/u with her and discuss plans with EP services. Discussed with Dr. Reese. Thanks KADEN GRIFFITH APRN Jul 22, 2021 09:54 SOHAIL NEUMANN MD Jul 22, 2021 16:12
[2021-07-22 11:00] VITALS: BP 149/90
[2021-07-22] MEDS ORDERED: DILT120C99 PO (12:06)
--- NOTE | 2021-07-22 12:18 | PDOC ---
[employer] PROGRESS NOTE Date of Service DOS: DATE: 07/22/21 TIME: 12:03 Chief Complaint Chief Complaint chest pain palpitations PAC, PVC prior symptomatic raj, has been stopped from taking b-blockers by Dr. Loja partner last week obese, BMI 35 History of Present Illness History of Present Illness Ms. Storm is a 71 year old female with chest pain, and palpitations. Meds changed last week due to complaints, and stopped on flecainide and propanolol and put her on amlodipine 5 mg. She since then has been having feelings of her heart racing and sensation that her heart was trying to beat too hear, with shortness of breath. She has had headache for a week, has been compliant with meds, she reports recent echo was reassuring, she is s/p mitral valve replacement, Currently denies chest pain, 07/22: Labs stable. Little anxious today. [place] fully after lisinopril. Advised to take Cardizem in lieu of of amlodipine and follow-up with electrophysiology outpatient. Discussed with cardiology. Telemetry reviewed some PACs and few PVCs. Vitals/I&O Vitals/I&O: Vital Signs Date Time Temp Pulse Resp B/P (MAP) Pulse Ox O2 Delivery O2 Flow Rate FiO2 07/22/21 09:35 93 139/63 07/22/21 08:00 Room Air 07/22/21 07:00 97.6 19 92 97.6 I & O 07/21/21 07/21/21 07/22/21 15:00 23:00 07:00 Intake Total 0 ml 0 ml Balance 0 ml 0 ml Physical Exam General: Alert, Oriented X3, Cooperative, No acute distress Heart: Regular rate (SR with frequent PAC's ) Abdomen: Normal bowel sounds, Soft Extremities: No cyanosis, No edema, Normal pulses Skin: No breakdown Labs Labs: Laboratory Tests Test 07/21/21 12:13 07/21/21 13:40 07/21/21 16:29 Urine Collection Type Unknown Urine Color Yellow Urine Clarity Clear Urine pH 6.5 (<5.0-8.0) Urine Specific [place] <=1.005 (1.000-1.030) Urine Protein Negative mg/dL (NEG-TRACE) Urine Glucose (UA) Negative mg/dL (NEG) Urine Ketones (Stick) Negative mg/dL (NEG) Urine Blood Negative (NEG) Urine Nitrite Negative (NEG) Urine Bilirubin Negative (NEG) Urine Urobilinogen Dipstick 0.2 mg/dL (0.2 mg/dL) Urine Leukocyte Esterase Negative (NEG) Urine RBC 0 /HPF (0-2) Urine WBC 0 /HPF (0-4) Urine Squamous Epithelial Cells Occ /LPF Urine Bacteria 0 /HPF (0-FEW) Urine Opiates Screen Neg (NEG) Urine Methadone Screen Neg (NEG) Urine Barbiturates Neg (NEG) Urine Phencyclidine Screen Neg (NEG) Urine Amphetamine/Methamphetamine Neg (NEG) Urine Benzodiazepines Screen Pos (NEG) Urine Cocaine Screen Neg (NEG) Urine Cannabinoids Screen Neg (NEG) Urine Ethyl Alcohol Neg (NEG) Troponin I High Sensitivity 11 ng/L (4-50) 15 ng/L (4-50) Thyroid Stimulating Hormone (TSH) 0.839 uIU/mL (0.358-3.74) Assessment and Plan Assessmemt and Plan Problems Medical Problems: (1) Afib Status: Acute (2) Chest discomfort Status: Acute (3) Shortness of breath Status: Acute Comment Review of Relevant I have reviewed the following items jamal (where applicable) has been applied. Medications: Current Medications Medications (Trade) Dose Ordered Sig/Oc Route PRN Reason Start Time Stop Time Status Last Admin Dose Admin Diltiazem HCl (Cardizem 24hr Cd) 120 mg DAILY PO 07/21/21 15:30 07/22/21 09:34 Lisinopril (Prinivil) 10 mg DAILY PO 07/22/21 09:00 07/22/21 09:35 Aspirin (Ecotrin) 81 mg DAILYWBKFT PO 07/22/21 08:00 07/22/21 09:34 Alprazolam (Xanax) 0.5 mg TID PO 07/21/21 21:00 07/22/21 05:44 Atorvastatin Calcium (Lipitor) 20 mg HS PO 07/21/21 21:00 07/21/21 20:44 Furosemide (Lasix) 20 mg DAILY PO 07/22/21 09:00 07/22/21 09:34 Potassium Chloride (Klor-Con) 20 meq DAILY PO 07/22/21 09:00 07/22/21 09:34 Pantoprazole Sodium (Protonix) 40 mg DAILY06 PO 07/22/21 06:00 07/22/21 05:44 Justifications for Admission Other Justification SHAILA DOOLEY MD Jul 22, 2021 12:17
--- NOTE | 2021-07-22 12:18 | PDOC3 ---
Discharge Summary Visit Information Final Diagnosis Problems Medical Problems: (1) Afib Status: Acute (2) Chest discomfort Status: Acute (3) Shortness of breath Status: Acute Brief Hospital Course Allergies Allergies Coded Allergies Type Severity Reaction Last Updated Verified ketorolac Allergy Severe Swelling 02/07/16 Yes cephalexin Allergy Intermediate 02/07/16 Yes ciprofloxacin Allergy Intermediate 02/11/16 Yes clindamycin Allergy Intermediate 02/07/16 Yes nitrofurantoin Allergy Intermediate Rash 07/22/21 Yes sulfamethoxazole Allergy Intermediate 02/07/16 Yes trimethoprim Allergy Intermediate 02/07/16 Yes Vital Signs Vital Signs Date Time Temp Pulse Resp B/P (MAP) Pulse Ox O2 Delivery O2 Flow Rate FiO2 07/22/21 09:35 93 139/63 07/22/21 08:00 Room Air 07/22/21 07:00 97.6 19 92 97.6 Lab Results Laboratory Tests Test 07/21/21 10:19 07/21/21 11:00 07/21/21 12:13 07/21/21 13:40 SARS-CoV-2 RNA (SILVERIO) Negative (Negative) SARS-CoV-2 Antigen (Rapid) Negative (NEGATIVE) White Blood Count 6.2 x10^3/uL (4.0-11.0) Red Blood Count 5.38 x10^6/uL (3.50-5.40) Hemoglobin 15.5 g/dL (12.0-15.5) Hematocrit 47.7 % (36.0-47.0) Mean Corpuscular Volume 89 fL (79-100) Mean Corpuscular Hemoglobin 29 pg (25-35) Mean Corpuscular Hemoglobin Concent 33 g/dL (31-37) Red Cell Distribution Width 14.0 % (11.5-14.5) Platelet Count 162 x10^3/uL (140-400) Neutrophils (%) (Auto) 67 % (31-73) Lymphocytes (%) (Auto) 22 % (24-48) Monocytes (%) (Auto) 10 % (0-9) Eosinophils (%) (Auto) 1 % (0-3) Basophils (%) (Auto) 0 % (0-3) Neutrophils # (Auto) 4.1 x10^3/uL (1.8-7.7) Lymphocytes # (Auto) 1.4 x10^3/uL (1.0-4.8) Monocytes # (Auto) 0.6 x10^3/uL (0.0-1.1) Eosinophils # (Auto) 0.1 x10^3/uL (0.0-0.7) Basophils # (Auto) 0.0 x10^3/uL (0.0-0.2) Prothrombin Time 12.9 SEC (11.7-14.0) Prothromb Time International Ratio 1.0 (0.8-1.1) Activated Partial Thromboplast Time 35 SEC (24-38) Sodium Level 143 mmol/L (136-145) Potassium Level 4.1 mmol/L (3.5-5.1) Chloride Level 105 mmol/L (98-107) Carbon Dioxide Level 28 mmol/L (21-32) Anion Gap 10 (6-14) Blood Urea Nitrogen 10 mg/dL (7-20) Creatinine 0.8 mg/dL (0.6-1.0) Estimated GFR (Cockcroft-Gault) 70.3 BUN/Creatinine Ratio 13 (6-20) Glucose Level 124 mg/dL (70-99) Calcium Level 10.0 mg/dL (8.5-10.1) Magnesium Level 2.5 mg/dL (1.8-2.4) Total Bilirubin 0.8 mg/dL (0.2-1.0) Aspartate Amino Transf (AST/SGOT) 18 U/L (15-37) Alanine Aminotransferase (ALT/SGPT) 34 U/L (14-59) Alkaline Phosphatase 113 U/L (46-116) Troponin I High Sensitivity 9 ng/L (4-50) 11 ng/L (4-50) RW-Oro-F-Type Natriuretic Peptide 223 pg/mL (0-124) Total Protein 7.9 g/dL (6.4-8.2) Albumin 4.2 g/dL (3.4-5.0) Albumin/Globulin Ratio 1.1 (1.0-1.7) Lipase 54 U/L (73-393) Urine Collection Type Unknown Urine Color Yellow Urine Clarity Clear Urine pH 6.5 (<5.0-8.0) Urine Specific Clarence <=1.005 (1.000-1.030) Urine Protein Negative mg/dL (NEG-TRACE) Urine Glucose (UA) Negative mg/dL (NEG) Urine Ketones (Stick) Negative mg/dL (NEG) Urine Blood Negative (NEG) Urine Nitrite Negative (NEG) Urine Bilirubin Negative (NEG) Urine Urobilinogen Dipstick 0.2 mg/dL (0.2 mg/dL) Urine Leukocyte Esterase Negative (NEG) Urine RBC 0 /HPF (0-2) Urine WBC 0 /HPF (0-4) Urine Squamous Epithelial Cells Occ /LPF Urine Bacteria 0 /HPF (0-FEW) Urine Opiates Screen Neg (NEG) Urine Methadone Screen Neg (NEG) Urine Barbiturates Neg (NEG) Urine Phencyclidine Screen Neg (NEG) Urine Amphetamine/Methamphetamine Neg (NEG) Urine Benzodiazepines Screen Pos (NEG) Urine Cocaine Screen Neg (NEG) Urine Cannabinoids Screen Neg (NEG) Urine Ethyl Alcohol Neg (NEG) Thyroid Stimulating Hormone (TSH) 0.839 uIU/mL (0.358-3.74) Test 07/21/21 16:29 Troponin I High Sensitivity 15 ng/L (4-50) Laboratory Tests Test 07/21/21 13:40 07/21/21 16:29 Troponin I High Sensitivity 11 ng/L (4-50) 15 ng/L (4-50) Thyroid Stimulating Hormone (TSH) 0.839 uIU/mL (0.358-3.74) Brief Hospital Course Ms. Storm is a 71 old [sex] who presented with [ ] Discharge Information Scheduled Alprazolam (Xanax) 0.5 Mg Tablet, 1 TAB PO TID, #90 (Reported) Entered as Reported by: ALIYAH ZAYAS on 02/07/16 1444 Last Action: Continued on 07/21/21 1636 by OCTAVIO WILKINS Aspirin (Aspir 81) 81 Mg Tablet.dr, 1 TAB PO DAILY, #30 Ref 5 (Reported) Entered as Reported by: ALIYAH ZAYAS on 02/07/16 1447 Last Action: Continued on 07/21/21 1636 by OCTAVIO WILKINS Atorvastatin Calcium (Lipitor) 20 Mg Tablet, 1 TAB PO HS, #90 Ref 1 (Reported) Entered as Reported by: ALIYAH ZAYAS on 02/07/16 1445 Last Action: Continued on 07/21/21 1636 by OCTAVIO WILKINS Calcium Carb & Cit/Vitamin D3 (Citracal + D Er Tablet) 1 Each Tablet.er, 1 EACH PO BID, (Reported) Entered as Reported by: JUNG BARKLEY on 04/06/18 1516 Diltiazem Hcl (Diltiazem 24HR Cd) 120 Mg Cap.er.24h, 120 MG PO DAILY for HTN/PVCs for 30 Days, #30 Ref 3 Prescribed by: SHAILA DOOLEY MD on 07/22/21 1206 Fish Oil/Dha/Epa (Fish Oil 1,200 Mg Fish Oil) 1 Each Capsule, 1 EACH PO DAILY, (Reported) Entered as Reported by: ALIYAH ZAYAS on 02/07/16 1447 Furosemide (Furosemide) 20 Mg Tablet, 1 TAB PO DAILY, #90 Ref 1 (Reported) Entered as Reported by: JENNIFER SANTOS on 11/08/15 1216 Last Action: Continued on 07/21/211635 by OCTAVIO WILKINS Omeprazole Magnesium (Prilosec Otc) 20 Mg Tablet.dr, 40 MG PO DAILY, (Reported) Entered as Reported by: ALIYAH ZAYAS on 02/07/16 1445 Last Action: Converted on 07/21/211635 by OCTAVIO WILKINS Potassium Chloride (Potassium Chloride ) 20 Meq Tablet.er, 20 MEQ PO DAILY, (Reported) Entered as Reported by: JUNG BARKLEY on 04/06/18 1516 Last Action: Continued on 07/21/211636 by OCTAVIO WILKINS Discontinued Medications Amlodipine Besylate (Amlodipine Besylate) 5 Mg Tablet, 5 MG PO DAILY for , (Reported) Entered as Reported by: Jason Nance on 07/21/211936 Last Action: New Order on 07/21/211936 by Jason Nance Flecainide Acetate (Flecainide Acetate) 100 Mg Tablet, 1 TAB PO BID, #60 Ref 5 (Reported) Entered as Reported by: NAE RICO RN on 04/10/18 162 Last Taken: Unknown Dose on 07/16/21 Last Action: Last Taken Edited on 07/21/211935 by Jason Nance Nebivolol Hcl (Bystolic) 5 Mg Tablet, 5 MG PO DAILY, (Reported) Entered as Reported by: ALIYAH ZAYAS on 02/07/16 1445 Last Action: Discontinued on 07/21/211935 by Jason Nance Vit A/Vit C/Vit E/Zinc/Copper (Preservision Areds Tablet) 1 Each Tablet, 1 EACH PO BID, (Reported) Entered as Reported by: ALIYAH ZAYAS on 02/07/16 1448 Last Action: Discontinued on 07/21/211935 by SHAILA Perez MD Jul 22, 2021 12:18
--- NOTE | 2021-07-22 13:32 | NUR ---
SS following for discharge planning. SS reviewed pt chart and discussed with pt RN. Pt is from home with spouse and is currently on room air. COVID19 negative. Discharge order on the chart for home with self care.
== END 2021-07-22 13:40 | disposition home or self-care (01) | DRG 310 ==
LOC: ER 10:35 → 6 SOUTH 11:45
PROVIDERS: ADMIT Internal Medicine; ATTEND Internal Medicine
DX: I48.91 Unspecified atrial fibrillation (principal); R07.89 Other chest pain; E78.5 Hyperlipidemia, unspecified; E66.9 Obesity, unspecified; E78.00 Pure hypercholesterolemia, unspecified; F41.9 Anxiety disorder, unspecified; I11.0 Hypertensive heart disease with heart failure; I49.1 Atrial premature depolarization; I49.3 Ventricular premature depolarization; I50.9 Heart failure, unspecified; K21.9 Gastro-esophageal reflux disease without esophagitis; Z79.82 Long term (current) use of aspirin; Z79.899 Other long term (current) drug therapy; Z85.818 Personal history of malignant neoplasm of other sites of lip, oral cavity, and pharynx; Z90.710 Acquired absence of both cervix and uterus; Z95.3 Presence of xenogenic heart valve; M19.90 Unspecified osteoarthritis, unspecified site; Z20.822 Contact with and (suspected) exposure to COVID-19; Z90.49 Acquired absence of other specified parts of digestive tract; Z88.8 Allergy status to other drugs, medicaments and biological substances; Z68.33 Body mass index [BMI] 33.0-33.9, adult; Z86.718 Personal history of other venous thrombosis and embolism; Z79.01 Long term (current) use of anticoagulants
CPT/HCPCS: 36415; 70450; 71045; 80053; 80307; 81001; 83690; 83735; 83880; 84443; 84484; 85025; 85610; 85730; 87426; 93005; U0003; U0005; 99285-25; G0378